=== PATIENT | female | born 1970 | race Caucasian/White ===

== ENCOUNTER 2017-09-16 01:34 | Emergency (ER) | payer OTHER ==
[2017-09-16 03:45] LABS: ADD MAN DIFF? NO
[2017-09-16 03:48] LABS: BASO # 0.1 x10^3/uL (0.0-0.2); BASO % 1 % (0-3); EOS # 0.1 x10^3/uL (0.0-0.7); EOS % 1 % (0-3); HEMOGLOBIN 15.6 g/dL (12.0-15.5); LYMPH # 2.4 x10^3/uL (1.0-4.8); LYMPH % 39 % (24-48); MEAN CORPUSCULAR HEMOGLOBIN 31 pg (25-35); MEAN CORPUSCULAR HGB CONC 34 g/dL (31-37); MEAN CORPUSCULAR VOLUME 92 fL (79-100); MONO # 0.4 x10^3/uL (0.0-1.1); MONO % 7 % (0-9); NEUT # 3.3 x10^3uL (1.8-7.7); NEUT % 52 % (31-73); PLATELET COUNT 297 x10^3/uL (140-400); RED BLOOD COUNT 4.99 x10^6/uL (3.50-5.40); WHITE BLOOD COUNT 6.3 x10^3/uL (4.0-11.0)
[2017-09-16 04:05] LABS: ANION GAP 11 (6-14); BLOOD UREA NITROGEN 22 mg/dL (7-20); BUN/CREATININE RATIO 28 (6-20); CALCIUM 8.9 mg/dL (8.5-10.1); CARBON DIOXIDE 28 mmol/L (21-32); CHLORIDE 103 mmol/L (98-107); CREATININE 0.8 mg/dL (0.6-1.0); GFR 76.9; GLUCOSE 110 mg/dL (70-99); POTASSIUM 4.1 mmol/L (3.5-5.1); SODIUM 142 mmol/L (136-145)
[2017-09-16 04:09] LABS: ALBUMIN 3.9 g/dL (3.4-5.0); ALK PHOS 114 U/L (46-116); ALT (SGPT) 25 U/L (14-59); AST (SGOT) 19 U/L (15-37); TOTAL BILIRUBIN 0.2 mg/dL (0.2-1.0); TOTAL PROTEIN 7.8 g/dL (6.4-8.2)
[2017-09-16 04:23] LABS: THYROID STIM HORMONE (TSH) 9.725 uIU/mL (0.358-3.74)
== END 2017-09-16 05:20 | disposition home or self-care (01) ==
LOC: ER 01:34
DX: F31.9 Bipolar disorder, unspecified (principal); Z88.2 Allergy status to sulfonamides
CPT/HCPCS: 36415; 80053; 84443; 84702; 85025; 99284

== ENCOUNTER 2017-11-24 10:58 | Inpatient (IN) | payer OTHER ==
[~2017-11-24] VITALS: Ht 170.2 cm; Wt 71.7 kg
[2017-11-24] VITALS (8 sets, daily range): BP systolic 102–157; BP diastolic 64–91
[~2017-11-24 10:58] MED LIST: DESV100T PO; GABA-586 PO; LEVO112T2 PO; PRAZ1CAP2 PO; VALA10005 PO
[2017-11-24] MEDS ORDERED: IV NORMAL SALINE 1000ML BAG 1,000 ML IV SCH (11:13)
[2017-11-24] MEDS ORDERED: ZIPRASIDONE IM 20 MG VIAL. IM ONE ×3 (11:13→13:45)
--- NOTE | 2017-11-24 11:26 | PHYS DOC ---
Past Medical History Past Medical History: Other Additional Past Medical Histor: borderline split personality disorder, bipolar II Past Surgical History: Tubal ligation, Other Additional Past Surgical Histo: tubes ligation reversed Alcohol Use: Occasionally Drug Use: Methamphetamine Adult General HPI HPI Patient is a 47-year-old female who presents to the emergency department after being found acting erratically, and was very combative with EMS. EMS required to administered 50 mg of ketamine intramuscularly and restrain the patient in order to facilitate a safe transport. The patient is screaming and combative upon arrival in the emergency department, and is not cooperative and not able to provide any meaningful history. Her symptoms do appear consistent with amphetamine intoxication, something that has been reported she has a history of. She is unable to provide any meaningful history at this time. Review of Systems Review of Systems Unable to obtain review of systems, secondary to suspected intoxication. Current Medications Current Medications Current Medications Medications (Trade) Dose Ordered Sig/Mauricio Start Time Stop Time Status Last Admin Dose Admin Lorazepam (Ativan) 2 mg 1X ONCE 11/24/17 13:45 11/24/17 13:46 DC 11/24/17 15:40 2 MG Sodium Chloride 1,000 ml @ 1,000 mls/hr Q1H 11/24/17 11:13 11/24/17 12:12 DC 11/24/17 11:24 1,000 MLS/HR Ziprasidone (Geodon Im) 10 mg 1X ONCE 11/24/17 13:45 11/24/17 13:46 DC 11/24/17 17:17 10 MG Allergies Allergies Allergies Coded Allergies Type Severity Reaction Last Updated Verified Sulfa (Sulfonamide Antibiotics) Allergy Unknown 09/16/17 Yes Physical Exam Physical Exam PHYSICAL EXAM: CONSTITUTIONAL: Well developed, well nourished HEAD: normocephalic, atraumatic EENT: PERRL, EOMI. pupils are 7 mm bilaterally. Conjunctivae normal color, sclerae non-icteric; moist mucous membranes. NECK: Supple, non-tender; no meningismus. LUNGS: Lungs CTA, breathing even and unlabored. Normal air movement. HEART: Regular rate and rhythm, no murmur CHEST: No deformity; non-tender ABDOMEN: The abdomen is soft, and non-tender, no masses or bruits. EXTREM: Normal ROM; no deformity, no calf tenderness. Normal pulses palpable in all extremities. There is no pedal edema. SKIN: No rash; patient's skin is diaphoretic. NEURO: Patient is awake, moves all extremities with normal strength. Her mental status is altered. BACK: No CVA TTP. Current Patient Data Vital Signs Vital Signs Date Time Temp Pulse Resp B/P (MAP) Pulse Ox O2 Delivery O2 Flow Rate FiO2 11/24/17 15:45 76 16 110/74 (86) 98 Room Air 11/24/17 11:00 97.6 97.6 Lab Values Laboratory Tests Test 11/24/17 11:14 11/24/17 11:40 11/24/17 11:45 11/24/17 11:46 White Blood Count 7.2 x10^3/uL (4.0-11.0) Red Blood Count 4.28 x10^6/uL (3.50-5.40) Hemoglobin 13.2 g/dL (12.0-15.5) Hematocrit 39.1 % (36.0-47.0) Mean Corpuscular Volume 92 fL (79-100) Mean Corpuscular Hemoglobin 31 pg (25-35) Mean Corpuscular Hemoglobin Concent 34 g/dL (31-37) Red Cell Distribution Width 13.6 % (11.5-14.5) Platelet Count 327 x10^3/uL (140-400) Neutrophils (%) (Auto) 62 % (31-73) Lymphocytes (%) (Auto) 30 % (24-48) Monocytes (%) (Auto) 7 % (0-9) Eosinophils (%) (Auto) 1 % (0-3) Basophils (%) (Auto) 1 % (0-3) Neutrophils # (Auto) 4.5 x10^3uL (1.8-7.7) Lymphocytes # (Auto) 2.2 x10^3/uL (1.0-4.8) Monocytes # (Auto) 0.5 x10^3/uL (0.0-1.1) Eosinophils # (Auto) 0.0 x10^3/uL (0.0-0.7) Basophils # (Auto) 0.0 x10^3/uL (0.0-0.2) Salicylates Level < 2.8 mg/dL (2.8-20.0) L Salicylate Last Dose Date Unknown Salicylate Last Dose Time Unknown Acetaminophen Level < 2 mcg/ml (10-30) L Acetaminophen Last Dose Date Unknown Acetaminophen Last Dose Time Unknown Ethyl Alcohol Level < 10 mg/dL (0-10) Sodium Level 139 mmol/L (136-145) Potassium Level 3.6 mmol/L (3.5-5.1) Chloride Level 105 mmol/L (98-107) Carbon Dioxide Level 24 mmol/L (21-32) Anion Gap 10 (6-14) Blood Urea Nitrogen 27 mg/dL (7-20) H Creatinine 0.9 mg/dL (0.6-1.0) Estimated GFR (Cockcroft-Gault) 67.1 Glucose Level 120 mg/dL (70-99) H Calcium Level 8.4 mg/dL (8.5-10.1) L Magnesium Level 1.8 mg/dL (1.8-2.4) Total Bilirubin 0.3 mg/dL (0.2-1.0) Direct Bilirubin 0.1 mg/dL (0.0-0.2) Aspartate Amino Transferase (AST) 20 U/L (15-37) Alanine Aminotransferase (ALT) 21 U/L (14-59) Alkaline Phosphatase 85 U/L (46-116) Total Protein 6.9 g/dL (6.4-8.2) Albumin 3.5 g/dL (3.4-5.0) Urine Collection Type U cath Urine Color Yellow Urine Clarity Clear Urine pH 5.5 Urine Specific [place] 1.025 Urine Protein Negative mg/dL (NEG-TRACE) Urine Glucose (UA) Negative mg/dL (NEG) Urine Ketones (Stick) Negative mg/dL (NEG) Urine Blood Negative (NEG) Urine Nitrite Negative (NEG) Urine Bilirubin Negative (NEG) Urine Urobilinogen Dipstick 1.0 mg/dL (0.2 mg/dL) Urine Leukocyte Esterase Negative (NEG) Urine RBC 1-2 /HPF (0-2) Urine WBC 1-4 /HPF (0-4) Urine Squamous Epithelial Cells Few /LPF Urine Bacteria Few /HPF (0-FEW) Urine Mucus Marked /LPF Urine Opiates Screen Neg (NEG) Urine Methadone Screen Neg (NEG) Urine Barbiturates Neg (NEG) Urine Phencyclidine Screen Neg (NEG) Urine Amphetamine/Methamphetamine Pos (NEG) Urine Benzodiazepines Screen Neg (NEG) Urine Cocaine Screen Neg (NEG) Urine Cannabinoids Screen Neg (NEG) Urine Ethyl Alcohol Neg (NEG) POC Urine HCG, Qualitative Hcg negative (Negative) Laboratory Tests 11/24/17 11:14 Laboratory Tests 11/24/17 11:40 EKG EKG [Sinus tachycardia at a rate of 123 bpm, normal axis, normal intervals, there are no acute ischemic ST/T changes.] Radiology/Procedures Radiology/Procedures [] Course & Med Decision Making Course & Med Decision Making Pertinent Lab studies reviewed. (See chart for details) [1:40 PM: The patient awakened, and is extremely agitated and combative again, as she was on presentation. She will require further medication treatment for her psychosis and agitation.] 3:50 PM: The patient condition remains hemodynamically stable although she is still exhibiting significant agitation and combativeness when awakened. I discussed the case with the hospitalist, who will admit the patient for further evaluation. Dragon Disclaimer Dragon Disclaimer This electronic medical record was generated, in whole or in part, using a voice recognition dictation system. Departure Departure Impression: Primary Impression: Drug-induced psychotic disorder Disposition: ADMITTED INPATIENT Admitting Physician: Cornelius Sherman Condition: GUARDED Referrals: UNKNOWN PCP NAME (PCP) AKASH COLON MD Nov 24, 2017 11:26
[2017-11-24 11:30] LABS: BASO % 1 % (0-3); EOS % 1 % (0-3); HEMATOCRIT 39.1 % (36.0-47.0); HEMOGLOBIN 13.2 g/dL (12.0-15.5); LYMPH # 2.2 x10^3/uL (1.0-4.8); LYMPH % 30 % (24-48); MEAN CORPUSCULAR HEMOGLOBIN 31 pg (25-35); MEAN CORPUSCULAR HGB CONC 34 g/dL (31-37); MEAN CORPUSCULAR VOLUME 92 fL (79-100); MONO # 0.5 x10^3/uL (0.0-1.1); MONO % 7 % (0-9); NEUT # 4.5 x10^3uL (1.8-7.7); NEUT % 62 % (31-73); PLATELET COUNT 327 x10^3/uL (140-400); RED BLOOD COUNT 4.28 x10^6/uL (3.50-5.40); RED CELL DISTRIBUTION WIDTH 13.6 % (11.5-14.5); WHITE BLOOD COUNT 7.2 x10^3/uL (4.0-11.0)
[2017-11-24 11:43] LABS: ACETAMIN < 2 mcg/ml (10-30); ETHANOL < 10 mg/dL (0-10); SALIC < 2.8 mg/dL (2.8-20.0)
[2017-11-24 11:56] LABS: BILIRUBIN,URINE NEGATIVE (NEG); CLARITY,URINE CLEAR; COLOR,URINE YELLOW; NITRITE,URINE NEGATIVE (NEG); PH,URINE 5.5; PROTEIN,URINE NEGATIVE (NEG-TRACE)
--- NOTE | 2017-11-24 12:00 | EKG ---
[facility] [address] [place] [address] Test Date: 2017-11-24 Test Time: 11:30:15 Pat Name: MAYELIN HSIEH Department: Room: Gender: F Mobile Architect: : 1970 Requested By: AKASH COLON Order Number: [id number] Reading MD: Ricardo Adler MD Measurements Intervals [place] Rate: 123 P: 56 MS: 148 QRS: 54 QRSD: 84 T: 69 QT: 298 QTc: 432 Interpretive Statements SINUS TACHYCARDIA NON-SPECIFIC ST/T CHANGES Electronically Signed On 11-26-2017 15:19:39 CDT by Ricardo Adler MD
[2017-11-24 12:04] LABS: ALBUMIN 3.5 g/dL (3.4-5.0); CALCIUM 8.4 mg/dL (8.5-10.1); CREATININE 0.9 mg/dL (0.6-1.0); DIRECT BILIRUBIN 0.1 mg/dL (0.0-0.2); GFR 67.1; MAGNESIUM 1.8 mg/dL (1.8-2.4); POTASSIUM 3.6 mmol/L (3.5-5.1); TOTAL BILIRUBIN 0.3 mg/dL (0.2-1.0); TOTAL PROTEIN 6.9 g/dL (6.4-8.2)
[2017-11-24 12:07] LABS: BARBITURATES NEG (NEG); BENZODIAZEPINES NEG (NEG); CANNABINOIDS NEG (NEG); COCAINE NEG (NEG); METHADONE NEG (NEG); OPIATES NEG (NEG); PHENCYCLIDINE NEG (NEG)
[2017-11-24 12:08] LABS: AMPHETAMINE/METHAMPHETAMINE POS (NEG); BACTERIA,URINE FEW /HPF (0-FEW); SQUAMOUS EPITHELIAL CELL,UR FEW /LPF
--- NOTE | 2017-11-24 16:11 | PDOC1 ---
History and Physical Date of Admission Date of Admission DATE: 11/24/17 TIME: 16:09 Identification/Chief Complaint Chief Complaint CC 47-year-old female who presents to the emergency department after being found acting erratically, and was very combative SEEN IN ER , Observed, no improvement Family History Family History: Alcohol Abuse Family History: Parent Social History Smoke: <1 pack per day ALCOHOL: heavy Drugs: Crystal meth Current Medications Current Medications Current Medications Ziprasidone (Geodon Im) 20 mg STK-MED ONCE IM ; Start 11/24/17 at 11:13; Stop at 11:14; Status DC Lorazepam (Ativan) 2 mg STK-MED ONCE .ROUTE ; Start 11/24/17 at 11:13; Stop at 11:15; Status DC Ziprasidone (Geodon Im) 10 mg 1X ONCE IM Last administered on 11/24/17at 11:19 ; Start 11/24/17 at 11:15; Stop 11/24/17 at 11:17; Status DC Lorazepam (Ativan) 2 mg 1X ONCE IV Last administered on 11/24/17at 11:19; Start 11/24/17 at 11:15; Stop 11/24/17 at 11:17; Status DC Sodium Chloride 1,000 ml @ 1,000 mls/hr Q1H IV Last administered on 11/24/17at 11:24; Start 11/24/17 at 11:13; Stop 11/24/17 at 12:12; Status DC Ziprasidone (Geodon Im) 10 mg 1X ONCE IM ; Start 11/24/17 at 13:45; Stop at 13:46; Status DC Lorazepam (Ativan) 2 mg 1X ONCE IV Last administered on 11/24/17at 15:40; Start 11/24/17 at 13:45; Stop 11/24/17 at 13:46; Status DC Dextrose/Lactated Ringer's 1,000 ml @ 125 mls/hr 1X ONCE IV ; Start 11/24/17 at 15:45; Stop 11/24/17 at 23:44; Status UNV Active Scripts Active Valtrex (Valacyclovir Hcl) 1,000 Mg Tablet 1 Tab PO DAILY Gabapentin 300 Mg Capsule 300 Mg PO TID 10 Days Prazosin Hcl 1 Mg Capsule 1 Cap PO QHS Synthroid (Levothyroxine Sodium) 112 Mcg Tablet 1 Tab PO DAILY Pristiq Er (Desvenlafaxine Succinate) 100 Mg Tab.er.24h 1 Tab PO DAILY Allergies Allergies: Coded Allergies: Sulfa (Sulfonamide Antibiotics) (Verified Allergy, Unknown, 09/16/17) Physical Exam Physical Exam HEAD: normocephalic, atraumatic EENT: PERRL, EOMI. pupils are 7 mm bilaterally. Conjunctivae normal color, sclerae non-icteric; moist mucous membranes. NECK: Supple, non-tender; no meningismus. LUNGS: Lungs CTA, breathing even and unlabored. Normal air movement. HEART: Regular rate and rhythm, no murmur CHEST: No deformity; non-tender ABDOMEN: The abdomen is soft, and non-tender, no masses or bruits. EXTREM: Normal ROM; no deformity, no calf tenderness. Normal pulses palpable in all extremities. There is no pedal edema. SKIN: No rash; patient's skin is diaphoretic. NEURO: Patient is awake, moves all extremities with normal strength. Her mental status is altered. BACK: No CVA TTP. General: moderate distress HEENT: EOMI Lungs: Clear to auscultation Breasts: Not examined Abdomen: Normal bowel sounds, Soft PELVIC: Examination not indicated Neuro: Cranial nerves 3-12 NL Vitals Vitals Vital Signs Date Time Temp Pulse Resp B/P (MAP) Pulse Ox O2 Delivery O2 Flow Rate FiO2 11/24/17 12:00 110 18 118/60 (79) 96 Room Air 11/24/17 11:00 97.6 97.6 Labs Labs Laboratory Tests Test 11/24/17 11:14 11/24/17 11:40 11/24/17 11:45 11/24/17 11:46 White Blood Count 7.2 x10^3/uL (4.0-11.0) Red Blood Count 4.28 x10^6/uL (3.50-5.40) Hemoglobin 13.2 g/dL (12.0-15.5) Hematocrit 39.1 % (36.0-47.0) Mean Corpuscular Volume 92 fL (79-100) Mean Corpuscular Hemoglobin 31 pg (25-35) Mean Corpuscular Hemoglobin Concent 34 g/dL (31-37) Red Cell Distribution Width 13.6 % (11.5-14.5) Platelet Count 327 x10^3/uL (140-400) Neutrophils (%) (Auto) 62 % (31-73) Lymphocytes (%) (Auto) 30 % (24-48) Monocytes (%) (Auto) 7 % (0-9) Eosinophils (%) (Auto) 1 % (0-3) Basophils (%) (Auto) 1 % (0-3) Neutrophils # (Auto) 4.5 x10^3uL (1.8-7.7) Lymphocytes # (Auto) 2.2 x10^3/uL (1.0-4.8) Monocytes # (Auto) 0.5 x10^3/uL (0.0-1.1) Eosinophils # (Auto) 0.0 x10^3/uL (0.0-0.7) Basophils # (Auto) 0.0 x10^3/uL (0.0-0.2) Salicylates Level < 2.8 mg/dL (2.8-20.0) Salicylate Last Dose Date Unknown Salicylate Last Dose Time Unknown Acetaminophen Level < 2 mcg/ml (10-30) Acetaminophen Last Dose Date Unknown Acetaminophen Last Dose Time Unknown Ethyl Alcohol Level < 10 mg/dL (0-10) Sodium Level 139 mmol/L (136-145) Potassium Level 3.6 mmol/L (3.5-5.1) Chloride Level 105 mmol/L (98-107) Carbon Dioxide Level 24 mmol/L (21-32) Anion Gap 10 (6-14) Blood Urea Nitrogen 27 mg/dL (7-20) Creatinine 0.9 mg/dL (0.6-1.0) Estimated GFR (Cockcroft-Gault) 67.1 Glucose Level 120 mg/dL (70-99) Calcium Level 8.4 mg/dL (8.5-10.1) Magnesium Level 1.8 mg/dL (1.8-2.4) Total Bilirubin 0.3 mg/dL (0.2-1.0) Direct Bilirubin 0.1 mg/dL (0.0-0.2) Aspartate Amino Transf (AST/SGOT) 20 U/L (15-37) Alanine Aminotransferase (ALT/SGPT) 21 U/L (14-59) Alkaline Phosphatase 85 U/L (46-116) Total Protein 6.9 g/dL (6.4-8.2) Albumin 3.5 g/dL (3.4-5.0) Urine Collection Type U cath Urine Color Yellow Urine Clarity Clear Urine pH 5.5 Urine Specific [place] 1.025 Urine Protein Negative mg/dL (NEG-TRACE) Urine Glucose (UA) Negative mg/dL (NEG) Urine Ketones (Stick) Negative mg/dL (NEG) Urine Blood Negative (NEG) Urine Nitrite Negative (NEG) Urine Bilirubin Negative (NEG) Urine Urobilinogen Dipstick 1.0 mg/dL (0.2 mg/dL) Urine Leukocyte Esterase Negative (NEG) Urine RBC 1-2 /HPF (0-2) Urine WBC 1-4 /HPF (0-4) Urine Squamous Epithelial Cells Few /LPF Urine Bacteria Few /HPF (0-FEW) Urine Mucus Marked /LPF Urine Opiates Screen Neg (NEG) Urine Methadone Screen Neg (NEG) Urine Barbiturates Neg (NEG) Urine Phencyclidine Screen Neg (NEG) Urine Amphetamine/Methamphetamine Pos (NEG) Urine Benzodiazepines Screen Neg (NEG) Urine Cocaine Screen Neg (NEG) Urine Cannabinoids Screen Neg (NEG) Urine Ethyl Alcohol Neg (NEG) Bedside Urine HCG, Qualitative Hcg negative (Negative) Laboratory Tests Test 11/24/17 11:14 11/24/17 11:40 11/24/17 11:45 11/24/17 11:46 White Blood Count 7.2 x10^3/uL (4.0-11.0) Red Blood Count 4.28 x10^6/uL (3.50-5.40) Hemoglobin 13.2 g/dL (12.0-15.5) Hematocrit 39.1 % (36.0-47.0) Mean Corpuscular Volume 92 fL (79-100) Mean Corpuscular Hemoglobin 31 pg (25-35) Mean Corpuscular Hemoglobin Concent 34 g/dL (31-37) Red Cell Distribution Width 13.6 % (11.5-14.5) Platelet Count 327 x10^3/uL (140-400) Neutrophils (%) (Auto) 62 % (31-73) Lymphocytes (%) (Auto) 30 % (24-48) Monocytes (%) (Auto) 7 % (0-9) Eosinophils (%) (Auto) 1 % (0-3) Basophils (%) (Auto) 1 % (0-3) Neutrophils # (Auto) 4.5 x10^3uL (1.8-7.7) Lymphocytes # (Auto) 2.2 x10^3/uL (1.0-4.8) Monocytes # (Auto) 0.5 x10^3/uL (0.0-1.1) Eosinophils # (Auto) 0.0 x10^3/uL (0.0-0.7) Basophils # (Auto) 0.0 x10^3/uL (0.0-0.2) Salicylates Level < 2.8 mg/dL (2.8-20.0) Salicylate Last Dose Date Unknown Salicylate Last Dose Time Unknown Acetaminophen Level < 2 mcg/ml (10-30) Acetaminophen Last Dose Date Unknown Acetaminophen Last Dose Time Unknown Ethyl Alcohol Level < 10 mg/dL (0-10) Sodium Level 139 mmol/L (136-145) Potassium Level 3.6 mmol/L (3.5-5.1) Chloride Level 105 mmol/L (98-107) Carbon Dioxide Level 24 mmol/L (21-32) Anion Gap 10 (6-14) Blood Urea Nitrogen 27 mg/dL (7-20) Creatinine 0.9 mg/dL (0.6-1.0) Estimated GFR (Cockcroft-Gault) 67.1 Glucose Level 120 mg/dL (70-99) Calcium Level 8.4 mg/dL (8.5-10.1) Magnesium Level 1.8 mg/dL (1.8-2.4) Total Bilirubin 0.3 mg/dL (0.2-1.0) Direct Bilirubin 0.1 mg/dL (0.0-0.2) Aspartate Amino Transf (AST/SGOT) 20 U/L (15-37) Alanine Aminotransferase (ALT/SGPT) 21 U/L (14-59) Alkaline Phosphatase 85 U/L (46-116) Total Protein 6.9 g/dL (6.4-8.2) Albumin 3.5 g/dL (3.4-5.0) Urine Collection Type U cath Urine Color Yellow Urine Clarity Clear Urine pH 5.5 Urine Specific [place] 1.025 Urine Protein Negative mg/dL (NEG-TRACE) Urine Glucose (UA) Negative mg/dL (NEG) Urine Ketones (Stick) Negative mg/dL (NEG) Urine Blood Negative (NEG) Urine Nitrite Negative (NEG) Urine Bilirubin Negative (NEG) Urine Urobilinogen Dipstick 1.0 mg/dL (0.2 mg/dL) Urine Leukocyte Esterase Negative (NEG) Urine RBC 1-2 /HPF (0-2) Urine WBC 1-4 /HPF (0-4) Urine Squamous Epithelial Cells Few /LPF Urine Bacteria Few /HPF (0-FEW) Urine Mucus Marked /LPF Urine Opiates Screen Neg (NEG) Urine Methadone Screen Neg (NEG) Urine Barbiturates Neg (NEG) Urine Phencyclidine Screen Neg (NEG) Urine Amphetamine/Methamphetamine Pos (NEG) Urine Benzodiazepines Screen Neg (NEG) Urine Cocaine Screen Neg (NEG) Urine Cannabinoids Screen Neg (NEG) Urine Ethyl Alcohol Neg (NEG) Bedside Urine HCG, Qualitative Hcg negative (Negative) VTE Prophylaxis Ordered VTE Prophylaxis Devices: Yes VTE Pharmacological Prophylaxi: Yes Assessment/Plan Assessment/Plan extremely agitated and combative with psychosis meth abuse hypothyroid state on replacement, plan She will require admission for psychosis and agitation. ICU BED Geodon 10mg im q 12 hrs prn PAT team consult case mgt consult lovenox dvt prophylaxis banana bag at 120cc/hr ct head LUPE BRAGG MD Nov 24, 2017 16:11
[2017-11-24] MEDS ORDERED: IV DEXTROSE 5%-LACT RINGERS 1,000 ML IV ONE (16:30)
[2017-11-24] MEDS ORDERED: ZIPRASIDONE IM 20 MG VIAL. IM PRN (16:30)
[2017-11-24] MEDS ORDERED: MULTIVIT INFUSN,ADULT 4,VIT K 10 ML, THIAMINE 100 MG, FOLIC ACID 1 MG in IV NORMAL SALI... IV ONE (17:00)
[2017-11-24] MEDS ORDERED: ENOXAPARIN 40 MG/0.4 ML SYRINGE. SQ ONE (17:00)
[2017-11-25] VITALS (14 sets, daily range): BP systolic 118–157; BP diastolic 69–100
[2017-11-25 11:02] LABS: CALCIUM 8.9 mg/dL (8.5-10.1); CREATININE 0.8 mg/dL (0.6-1.0); GFR 76.9; POTASSIUM 3.8 mmol/L (3.5-5.1)
[2017-11-25 11:06] LABS: BASO % 1 % (0-3); EOS % 1 % (0-3); HEMATOCRIT 39.2 % (36.0-47.0); HEMOGLOBIN 13.2 g/dL (12.0-15.5); LYMPH # 2.1 x10^3/uL (1.0-4.8); LYMPH % 35 % (24-48); MEAN CORPUSCULAR HEMOGLOBIN 31 pg (25-35); MEAN CORPUSCULAR HGB CONC 34 g/dL (31-37); MEAN CORPUSCULAR VOLUME 93 fL (79-100); MONO # 0.4 x10^3/uL (0.0-1.1); MONO % 7 % (0-9); NEUT # 3.4 x10^3uL (1.8-7.7); NEUT % 57 % (31-73); PLATELET COUNT 265 x10^3/uL (140-400); RED BLOOD COUNT 4.23 x10^6/uL (3.50-5.40); RED CELL DISTRIBUTION WIDTH 13.6 % (11.5-14.5)
--- NOTE | 2017-11-25 14:49 | PDOC ---
PROGRESS NOTES Chief Complaint Chief Complaint Drug induced psychosis Cellulitis L forearm Substance abuse, meth Thyroid disorder Ehmarce Danlos C4/C5 fusion shingles History of Present Illness History of Present Illness Pt seen and examined in ICU Pt was slightly agitated during visit claimed that the drugs she was on were given to her unknowingly her answers to questions kept changing DW RN who is 1 to 1 at her bedside Cellulitis and small bullae present on her left forearm Vitals Vitals Vital Signs Date Time Temp Pulse Resp B/P (MAP) Pulse Ox O2 Delivery O2 Flow Rate FiO2 11/25/17 12:00 98 21 138/77 (97) 98 Room Air 11/25/17 08:00 98.0 98.0 Physical Exam General: Alert, Oriented X3, moderate distress Heart: Regular rate, Normal S1 Lungs: Clear Abdomen: Normal bowel sounds, Soft Extremities: No clubbing, No cyanosis Skin: Other (small bullous lesions on left forearm. Red, puffy, taut, warm skin - cellulitis) Labs LABS Laboratory Tests Test 11/25/17 10:35 White Blood Count 6.0 x10^3/uL (4.0-11.0) Red Blood Count 4.23 x10^6/uL (3.50-5.40) Hemoglobin 13.2 g/dL (12.0-15.5) Hematocrit 39.2 % (36.0-47.0) Mean Corpuscular Volume 93 fL (79-100) Mean Corpuscular Hemoglobin 31 pg (25-35) Mean Corpuscular Hemoglobin Concent 34 g/dL (31-37) Red Cell Distribution Width 13.6 % (11.5-14.5) Platelet Count 265 x10^3/uL (140-400) Neutrophils (%) (Auto) 57 % (31-73) Lymphocytes (%) (Auto) 35 % (24-48) Monocytes (%) (Auto) 7 % (0-9) Eosinophils (%) (Auto) 1 % (0-3) Basophils (%) (Auto) 1 % (0-3) Neutrophils # (Auto) 3.4 x10^3uL (1.8-7.7) Lymphocytes # (Auto) 2.1 x10^3/uL (1.0-4.8) Monocytes # (Auto) 0.4 x10^3/uL (0.0-1.1) Eosinophils # (Auto) 0.0 x10^3/uL (0.0-0.7) Basophils # (Auto) 0.0 x10^3/uL (0.0-0.2) Sodium Level 139 mmol/L (136-145) Potassium Level 3.8 mmol/L (3.5-5.1) Chloride Level 104 mmol/L (98-107) Carbon Dioxide Level 26 mmol/L (21-32) Anion Gap 9 (6-14) Blood Urea Nitrogen 16 mg/dL (7-20) Creatinine 0.8 mg/dL (0.6-1.0) Estimated GFR (Cockcroft-Gault) 76.9 Glucose Level 95 mg/dL (70-99) Calcium Level 8.9 mg/dL (8.5-10.1) Review of Systems Review of Systems Complains of pain in left forearm denies N/V/D Assessment and Plan Assessmemt and Plan Drug induced psychosis Cellulitis L forearm Substance abuse, meth Thyroid disorder Ehler Danlos C4/C5 fusion shingles Plan: PO Abx for cellulitis home meds PAT consult- recommended outpatient [facility] Labs continue supervision Comment Review of Relevant I have reviewed the following items erich (where applicable) has been applied. Labs Laboratory Tests Test 11/24/17 11:14 11/24/17 11:40 11/24/17 11:45 11/24/17 11:46 White Blood Count 7.2 x10^3/uL (4.0-11.0) Red Blood Count 4.28 x10^6/uL (3.50-5.40) Hemoglobin 13.2 g/dL (12.0-15.5) Hematocrit 39.1 % (36.0-47.0) Mean Corpuscular Volume 92 fL (79-100) Mean Corpuscular Hemoglobin 31 pg (25-35) Mean Corpuscular Hemoglobin Concent 34 g/dL (31-37) Red Cell Distribution Width 13.6 % (11.5-14.5) Platelet Count 327 x10^3/uL (140-400) Neutrophils (%) (Auto) 62 % (31-73) Lymphocytes (%) (Auto) 30 % (24-48) Monocytes (%) (Auto) 7 % (0-9) Eosinophils (%) (Auto) 1 % (0-3) Basophils (%) (Auto) 1 % (0-3) Neutrophils # (Auto) 4.5 x10^3uL (1.8-7.7) Lymphocytes # (Auto) 2.2 x10^3/uL (1.0-4.8) Monocytes # (Auto) 0.5 x10^3/uL (0.0-1.1) Eosinophils # (Auto) 0.0 x10^3/uL (0.0-0.7) Basophils # (Auto) 0.0 x10^3/uL (0.0-0.2) Salicylates Level < 2.8 mg/dL (2.8-20.0) Salicylate Last Dose Date Unknown Salicylate Last Dose Time Unknown Acetaminophen Level < 2 mcg/ml (10-30) Acetaminophen Last Dose Date Unknown Acetaminophen Last Dose Time Unknown Ethyl Alcohol Level < 10 mg/dL (0-10) Sodium Level 139 mmol/L (136-145) Potassium Level 3.6 mmol/L (3.5-5.1) Chloride Level 105 mmol/L (98-107) Carbon Dioxide Level 24 mmol/L (21-32) Anion Gap 10 (6-14) Blood Urea Nitrogen 27 mg/dL (7-20) Creatinine 0.9 mg/dL (0.6-1.0) Estimated GFR (Cockcroft-Gault) 67.1 Glucose Level 120 mg/dL (70-99) Calcium Level 8.4 mg/dL (8.5-10.1) Magnesium Level 1.8 mg/dL (1.8-2.4) Total Bilirubin 0.3 mg/dL (0.2-1.0) Direct Bilirubin 0.1 mg/dL (0.0-0.2) Aspartate Amino Transf (AST/SGOT) 20 U/L (15-37) Alanine Aminotransferase (ALT/SGPT) 21 U/L (14-59) Alkaline Phosphatase 85 U/L (46-116) Total Protein 6.9 g/dL (6.4-8.2) Albumin 3.5 g/dL (3.4-5.0) Urine Collection Type U cath Urine Color Yellow Urine Clarity Clear Urine pH 5.5 Urine Specific [place] 1.025 Urine Protein Negative mg/dL (NEG-TRACE) Urine Glucose (UA) Negative mg/dL (NEG) Urine Ketones (Stick) Negative mg/dL (NEG) Urine Blood Negative (NEG) Urine Nitrite Negative (NEG) Urine Bilirubin Negative (NEG) Urine Urobilinogen Dipstick 1.0 mg/dL (0.2 mg/dL) Urine Leukocyte Esterase Negative (NEG) Urine RBC 1-2 /HPF (0-2) Urine WBC 1-4 /HPF (0-4) Urine Squamous Epithelial Cells Few /LPF Urine Bacteria Few /HPF (0-FEW) Urine Mucus Marked /LPF Urine Opiates Screen Neg (NEG) Urine Methadone Screen Neg (NEG) Urine Barbiturates Neg (NEG) Urine Phencyclidine Screen Neg (NEG) Urine Amphetamine/Methamphetamine Pos (NEG) Urine Benzodiazepines Screen Neg (NEG) Urine Cocaine Screen Neg (NEG) Urine Cannabinoids Screen Neg (NEG) Urine Ethyl Alcohol Neg (NEG) Bedside Urine HCG, Qualitative Hcg negative (Negative) Test 11/25/17 10:35 White Blood Count 6.0 x10^3/uL (4.0-11.0) Red Blood Count 4.23 x10^6/uL (3.50-5.40) Hemoglobin 13.2 g/dL (12.0-15.5) Hematocrit 39.2 % (36.0-47.0) Mean Corpuscular Volume 93 fL (79-100) Mean Corpuscular Hemoglobin 31 pg (25-35) Mean Corpuscular Hemoglobin Concent 34 g/dL (31-37) Red Cell Distribution Width 13.6 % (11.5-14.5) Platelet Count 265 x10^3/uL (140-400) Neutrophils (%) (Auto) 57 % (31-73) Lymphocytes (%) (Auto) 35 % (24-48) Monocytes (%) (Auto) 7 % (0-9) Eosinophils (%) (Auto) 1 % (0-3) Basophils (%) (Auto) 1 % (0-3) Neutrophils # (Auto) 3.4 x10^3uL (1.8-7.7) Lymphocytes # (Auto) 2.1 x10^3/uL (1.0-4.8) Monocytes # (Auto) 0.4 x10^3/uL (0.0-1.1) Eosinophils # (Auto) 0.0 x10^3/uL (0.0-0.7) Basophils # (Auto) 0.0 x10^3/uL (0.0-0.2) Sodium Level 139 mmol/L (136-145) Potassium Level 3.8 mmol/L (3.5-5.1) Chloride Level 104 mmol/L (98-107) Carbon Dioxide Level 26 mmol/L (21-32) Anion Gap 9 (6-14) Blood Urea Nitrogen 16 mg/dL (7-20) Creatinine 0.8 mg/dL (0.6-1.0) Estimated GFR (Cockcroft-Gault) 76.9 Glucose Level 95 mg/dL (70-99) Calcium Level 8.9 mg/dL (8.5-10.1) Laboratory Tests Test 11/25/17 10:35 White Blood Count 6.0 x10^3/uL (4.0-11.0) Red Blood Count 4.23 x10^6/uL (3.50-5.40) Hemoglobin 13.2 g/dL (12.0-15.5) Hematocrit 39.2 % (36.0-47.0) Mean Corpuscular Volume 93 fL (79-100) Mean Corpuscular Hemoglobin 31 pg (25-35) Mean Corpuscular Hemoglobin Concent 34 g/dL (31-37) Red Cell Distribution Width 13.6 % (11.5-14.5) Platelet Count 265 x10^3/uL (140-400) Neutrophils (%) (Auto) 57 % (31-73) Lymphocytes (%) (Auto) 35 % (24-48) Monocytes (%) (Auto) 7 % (0-9) Eosinophils (%) (Auto) 1 % (0-3) Basophils (%) (Auto) 1 % (0-3) Neutrophils # (Auto) 3.4 x10^3uL (1.8-7.7) Lymphocytes # (Auto) 2.1 x10^3/uL (1.0-4.8) Monocytes # (Auto) 0.4 x10^3/uL (0.0-1.1) Eosinophils # (Auto) 0.0 x10^3/uL (0.0-0.7) Basophils # (Auto) 0.0 x10^3/uL (0.0-0.2) Sodium Level 139 mmol/L (136-145) Potassium Level 3.8 mmol/L (3.5-5.1) Chloride Level 104 mmol/L (98-107) Carbon Dioxide Level 26 mmol/L (21-32) Anion Gap 9 (6-14) Blood Urea Nitrogen 16 mg/dL (7-20) Creatinine 0.8 mg/dL (0.6-1.0) Estimated GFR (Cockcroft-Gault) 76.9 Glucose Level 95 mg/dL (70-99) Calcium Level 8.9 mg/dL (8.5-10.1) Medications Current Medications Ziprasidone (Geodon Im) 20 mg STK-MED ONCE IM ; Start 11/24/17 at 11:13; Stop at 11:14; Status DC Lorazepam (Ativan) 2 mg STK-MED ONCE .ROUTE ; Start 11/24/17 at 11:13; Stop at 11:15; Status DC Ziprasidone (Geodon Im) 10 mg 1X ONCE IM Last administered on 11/24/17at 11:19 ; Start 11/24/17 at 11:15; Stop 11/24/17 at 11:17; Status DC Lorazepam (Ativan) 2 mg 1X ONCE IV Last administered on 11/24/17at 11:19; Start 11/24/17 at 11:15; Stop 11/24/17 at 11:17; Status DC Sodium Chloride 1,000 ml @ 1,000 mls/hr Q1H IV Last administered on 11/24/17at 11:24; Start 11/24/17 at 11:13; Stop 11/24/17 at 12:12; Status DC Ziprasidone (Geodon Im) 10 mg 1X ONCE IM Last administered on 11/24/17at 17:17 ; Start 11/24/17 at 13:45; Stop 11/24/17 at 13:46; Status DC Lorazepam (Ativan) 2 mg 1X ONCE IV Last administered on 11/24/17at 15:40; Start 11/24/17 at 13:45; Stop 11/24/17 at 13:46; Status DC Dextrose/Lactated Ringer's 1,000 ml @ 125 mls/hr 1X ONCE IV ; Start 11/24/17 at 16:30; Stop 11/25/17 at 00:29; Status DC Ziprasidone (Geodon Im) 10 mg PRN Q12HR PRN IM AGITATION, 2ND CHOICE; Start at 16:30 Levothyroxine Sodium (Synthroid) 112 mcg DAILY07 PO ; Start 11/25/17 at 07:00 Valacyclovir HCl (Valtrex) 1,000 mg DAILY PO ; Start 11/25/17 at 09:00 Multivitamins 10 ml/Thiamine HCl 100 mg/Folic Acid 1 mg/Sodium Chloride 1,011.2 ml @ 1,000.088 mls/hr 1X ONCE IV Last administered on 11/24/17at 17:18; Start 11/24/17 at 17:00; Stop 11/24/17 at 18:00; Status DC Enoxaparin Sodium (Lovenox 40mg Syringe) 40 mg 1X ONCE SQ Last administered on 11/24/17at 18:27; Start 11/24/17 at 17:00; Stop 11/24/17 at 17:01; Status DC Lorazepam (Ativan) 2 mg STK-MED ONCE .ROUTE ; Start 11/24/17 at 19:21; Stop at 19:22; Status DC Lorazepam (Ativan) 2 mg PRN Q3HRS PRN IV ANXIETY / AGITATION Last administered on 11/25/17at 05:49; Start 11/24/17 at 19:45 Active Scripts Active Valtrex (Valacyclovir Hcl) 1,000 Mg Tablet 1 Tab PO DAILY Gabapentin 300 Mg Capsule 300 Mg PO TID 10 Days Prazosin Hcl 1 Mg Capsule 1 Cap PO QHS Synthroid (Levothyroxine Sodium) 112 Mcg Tablet 1 Tab PO DAILY Pristiq Er (Desvenlafaxine Succinate) 100 Mg Tab.er.24h 1 Tab PO DAILY Vitals/I & O Vital Sign - Last 24 Hours 11/24/17 11/24/17 11/24/17 11/24/17 15:00 15:30 15:45 16:00 Pulse 104 76 76 78 Resp 17 18 16 17 B/P (MAP) 120/64 (82) 106/56 (73) 110/74 (86) 125/73 (90) Pulse Ox 97 98 98 96 O2 Delivery Room Air Room Air Room Air Room Air 11/24/17 11/24/17 11/24/17 11/24/17 16:15 16:45 17:30 18:00 Temp 98.5 98.5 98.5 98.5 Pulse 72 76 77 71 Resp 16 17 18 18 B/P (MAP) 125/80 (95) 107/67 (80) 112/66 (81) 102/64 (77) Pulse Ox 99 97 99 99 O2 Delivery Room Air Room Air Room Air Room Air 11/24/17 11/24/17 11/24/17 11/24/17 19:02 20:00 21:00 22:00 Temp 98.7 98.7 98.7 98.7 Pulse 69 69 67 71 Resp 12 18 18 15 B/P (MAP) 122/71 (88) 122/68 (86) 135/70 (91) 134/87 (103) Pulse Ox 100 99 99 98 O2 Delivery Room Air Room Air Room Air Room Air 11/24/17 11/24/17 11/25/17 11/25/17 23:00 23:59 01:00 02:00 Pulse 71 71 79 77 Resp 15 15 15 18 B/P (MAP) 157/91 (113) 140/82 (101) 140/83 (102) 157/100 (119) Pulse Ox 97 98 99 96 O2 Delivery Room Air Room Air Room Air Room Air 11/25/17 11/25/17 11/25/17 11/25/17 03:01 04:00 04:00 05:00 Temp 97.8 97.8 Pulse 74 82 82 Resp 14 20 22 B/P (MAP) 157/87 (110) 149/85 (106) 118/69 (85) Pulse Ox 99 98 99 O2 Delivery Room Air Room Air Room Air Room Air 11/25/17 11/25/17 11/25/17 11/25/17 06:19 07:00 08:00 08:00 Temp 98.0 98.0 Pulse 105 83 77 Resp 20 16 14 B/P (MAP) 129/95 (106) 132/78 (96) 127/82 (97) Pulse Ox 98 98 98 O2 Delivery Room Air Room Air Room Air Room Air 11/25/17 11/25/17 11/25/17 11/25/17 09:00 10:00 11:00 12:00 Pulse 74 76 79 Resp 17 20 21 B/P (MAP) 149/93 (111) 138/87 (104) 141/85 (103) Pulse Ox 98 98 98 O2 Delivery Room Air Room Air Room Air Room Air 11/25/17 12:00 Pulse 98 Resp 21 B/P (MAP) 138/77 (97) Pulse Ox 98 O2 Delivery Room Air Intake and Output 11/24/17 11/24/17 11/25/17 15:00 23:00 07:00 Intake Total 1000 ml 0 ml Output Total 0 ml 0 ml Balance 1000 ml 0 ml 0 ml DOMENIC MONTELONGO III DO Nov 25, 2017 14:49
[2017-11-25] MEDS: AMOXICILLIN/K CLAV 875/125MG TABLET. PO SCH ×2 (15:07→20:56)
[2017-11-25] MEDS: LEVOTHYROXINE 112 MCG TABLET PO SCH (15:07)
[2017-11-25] MEDS: valACYclovir 500 MG TABLET. PO SCH (15:07)
[2017-11-25] MEDS: LACTOBACILLUS RHAMNOSUS GG 1 CAPSULE. PO SCH (20:56)
[2017-11-25] MEDS ORDERED: clonazePAM 1 MG TABLET PO PRN (21:00)
[2017-11-25] MEDS ORDERED: HALOPERIDOL 5 MG TABLET. PO PRN (21:00)
[2017-11-25] MEDS ORDERED: NICOTINE POLACRILEX 2MG GUM PACKAGE of 12. BC PRN (23:45)
[2017-11-26 07:00] VITALS: BP 102/62
[2017-11-26] MEDS: valACYclovir 500 MG TABLET. PO SCH (09:39)
[2017-11-26] MEDS: AMOXICILLIN/K CLAV 875/125MG TABLET. PO SCH (09:39)
[2017-11-26] MEDS: LEVOTHYROXINE 112 MCG TABLET PO SCH (09:39)
[2017-11-26] MEDS: LACTOBACILLUS RHAMNOSUS GG 1 CAPSULE. PO SCH (09:39)
--- NOTE | 2017-11-26 10:06 | PDOC ---
PROGRESS NOTES Chief Complaint Chief Complaint Drug induced psychosis (methamphetamine) Cellulitis L forearm, better on PO augmentin Substance abuse, meth Thyroid disorder Ehler Danlos C4/C5 fusion shingles? History of Present Illness History of Present Illness Transferred out of ICU 11/26/79 Cellulitis of the left arm seems to be getting better as per staff-someone started Augmentin by mouth I dont see any shingles in the body Discussed with very close friend at bedside, also discussed with social work, patient is for outpatient psych eval as per pAT assessment, But patient is still unsteady gait, not eating, I feel that she's not ready to DC yet today Plan: Keep for now NOt ready to dc today, clinically Vitals Vitals Vital Signs Date Time Temp Pulse Resp B/P (MAP) Pulse Ox O2 Delivery O2 Flow Rate FiO2 11/26/17 07:00 97.4 68 18 102/62 (75) 100 Room Air 97.4 Physical Exam General: Alert, Oriented X3, moderate distress Heart: Regular rate, Normal S1 Lungs: Clear Abdomen: Normal bowel sounds, Soft Extremities: No clubbing, No cyanosis Skin: Other (small bullous lesions on left forearm. Red, puffy, taut, warm skin - cellulitis) Labs LABS Laboratory Tests Test 11/25/17 10:35 White Blood Count 6.0 x10^3/uL (4.0-11.0) Red Blood Count 4.23 x10^6/uL (3.50-5.40) Hemoglobin 13.2 g/dL (12.0-15.5) Hematocrit 39.2 % (36.0-47.0) Mean Corpuscular Volume 93 fL (79-100) Mean Corpuscular Hemoglobin 31 pg (25-35) Mean Corpuscular Hemoglobin Concent 34 g/dL (31-37) Red Cell Distribution Width 13.6 % (11.5-14.5) Platelet Count 265 x10^3/uL (140-400) Neutrophils (%) (Auto) 57 % (31-73) Lymphocytes (%) (Auto) 35 % (24-48) Monocytes (%) (Auto) 7 % (0-9) Eosinophils (%) (Auto) 1 % (0-3) Basophils (%) (Auto) 1 % (0-3) Neutrophils # (Auto) 3.4 x10^3uL (1.8-7.7) Lymphocytes # (Auto) 2.1 x10^3/uL (1.0-4.8) Monocytes # (Auto) 0.4 x10^3/uL (0.0-1.1) Eosinophils # (Auto) 0.0 x10^3/uL (0.0-0.7) Basophils # (Auto) 0.0 x10^3/uL (0.0-0.2) Sodium Level 139 mmol/L (136-145) Potassium Level 3.8 mmol/L (3.5-5.1) Chloride Level 104 mmol/L (98-107) Carbon Dioxide Level 26 mmol/L (21-32) Anion Gap 9 (6-14) Blood Urea Nitrogen 16 mg/dL (7-20) Creatinine 0.8 mg/dL (0.6-1.0) Estimated GFR (Cockcroft-Gault) 76.9 Glucose Level 95 mg/dL (70-99) Calcium Level 8.9 mg/dL (8.5-10.1) Review of Systems Review of Systems Woozy, limited ROS, claims pain in bilateral arms - they do appear mildly swollen Assessment and Plan Assessmemt and Plan Problems Medical Problems: (1) Drug-induced psychotic disorder Status: Acute Comment Review of Relevant I have reviewed the following items erich (where applicable) has been applied. Labs Laboratory Tests Test 11/24/17 11:14 11/24/17 11:40 11/24/17 11:45 11/24/17 11:46 White Blood Count 7.2 x10^3/uL (4.0-11.0) Red Blood Count 4.28 x10^6/uL (3.50-5.40) Hemoglobin 13.2 g/dL (12.0-15.5) Hematocrit 39.1 % (36.0-47.0) Mean Corpuscular Volume 92 fL (79-100) Mean Corpuscular Hemoglobin 31 pg (25-35) Mean Corpuscular Hemoglobin Concent 34 g/dL (31-37) Red Cell Distribution Width 13.6 % (11.5-14.5) Platelet Count 327 x10^3/uL (140-400) Neutrophils (%) (Auto) 62 % (31-73) Lymphocytes (%) (Auto) 30 % (24-48) Monocytes (%) (Auto) 7 % (0-9) Eosinophils (%) (Auto) 1 % (0-3) Basophils (%) (Auto) 1 % (0-3) Neutrophils # (Auto) 4.5 x10^3uL (1.8-7.7) Lymphocytes # (Auto) 2.2 x10^3/uL (1.0-4.8) Monocytes # (Auto) 0.5 x10^3/uL (0.0-1.1) Eosinophils # (Auto) 0.0 x10^3/uL (0.0-0.7) Basophils # (Auto) 0.0 x10^3/uL (0.0-0.2) Salicylates Level < 2.8 mg/dL (2.8-20.0) Salicylate Last Dose Date Unknown Salicylate Last Dose Time Unknown Acetaminophen Level < 2 mcg/ml (10-30) Acetaminophen Last Dose Date Unknown Acetaminophen Last Dose Time Unknown Ethyl Alcohol Level < 10 mg/dL (0-10) Sodium Level 139 mmol/L (136-145) Potassium Level 3.6 mmol/L (3.5-5.1) Chloride Level 105 mmol/L (98-107) Carbon Dioxide Level 24 mmol/L (21-32) Anion Gap 10 (6-14) Blood Urea Nitrogen 27 mg/dL (7-20) Creatinine 0.9 mg/dL (0.6-1.0) Estimated GFR (Cockcroft-Gault) 67.1 Glucose Level 120 mg/dL (70-99) Calcium Level 8.4 mg/dL (8.5-10.1) Magnesium Level 1.8 mg/dL (1.8-2.4) Total Bilirubin 0.3 mg/dL (0.2-1.0) Direct Bilirubin 0.1 mg/dL (0.0-0.2) Aspartate Amino Transf (AST/SGOT) 20 U/L (15-37) Alanine Aminotransferase (ALT/SGPT) 21 U/L (14-59) Alkaline Phosphatase 85 U/L (46-116) Total Protein 6.9 g/dL (6.4-8.2) Albumin 3.5 g/dL (3.4-5.0) Urine Collection Type U cath Urine Color Yellow Urine Clarity Clear Urine pH 5.5 Urine Specific [place] 1.025 Urine Protein Negative mg/dL (NEG-TRACE) Urine Glucose (UA) Negative mg/dL (NEG) Urine Ketones (Stick) Negative mg/dL (NEG) Urine Blood Negative (NEG) Urine Nitrite Negative (NEG) Urine Bilirubin Negative (NEG) Urine Urobilinogen Dipstick 1.0 mg/dL (0.2 mg/dL) Urine Leukocyte Esterase Negative (NEG) Urine RBC 1-2 /HPF (0-2) Urine WBC 1-4 /HPF (0-4) Urine Squamous Epithelial Cells Few /LPF Urine Bacteria Few /HPF (0-FEW) Urine Mucus Marked /LPF Urine Opiates Screen Neg (NEG) Urine Methadone Screen Neg (NEG) Urine Barbiturates Neg (NEG) Urine Phencyclidine Screen Neg (NEG) Urine Amphetamine/Methamphetamine Pos (NEG) Urine Benzodiazepines Screen Neg (NEG) Urine Cocaine Screen Neg (NEG) Urine Cannabinoids Screen Neg (NEG) Urine Ethyl Alcohol Neg (NEG) Bedside Urine HCG, Qualitative Hcg negative (Negative) Test 11/24/17 18:30 11/25/17 10:35 Nasal Screen MRSA (PCR) Negative (Negative) White Blood Count 6.0 x10^3/uL (4.0-11.0) Red Blood Count 4.23 x10^6/uL (3.50-5.40) Hemoglobin 13.2 g/dL (12.0-15.5) Hematocrit 39.2 % (36.0-47.0) Mean Corpuscular Volume 93 fL (79-100) Mean Corpuscular Hemoglobin 31 pg (25-35) Mean Corpuscular Hemoglobin Concent 34 g/dL (31-37) Red Cell Distribution Width 13.6 % (11.5-14.5) Platelet Count 265 x10^3/uL (140-400) Neutrophils (%) (Auto) 57 % (31-73) Lymphocytes (%) (Auto) 35 % (24-48) Monocytes (%) (Auto) 7 % (0-9) Eosinophils (%) (Auto) 1 % (0-3) Basophils (%) (Auto) 1 % (0-3) Neutrophils # (Auto) 3.4 x10^3uL (1.8-7.7) Lymphocytes # (Auto) 2.1 x10^3/uL (1.0-4.8) Monocytes # (Auto) 0.4 x10^3/uL (0.0-1.1) Eosinophils # (Auto) 0.0 x10^3/uL (0.0-0.7) Basophils # (Auto) 0.0 x10^3/uL (0.0-0.2) Sodium Level 139 mmol/L (136-145) Potassium Level 3.8 mmol/L (3.5-5.1) Chloride Level 104 mmol/L (98-107) Carbon Dioxide Level 26 mmol/L (21-32) Anion Gap 9 (6-14) Blood Urea Nitrogen 16 mg/dL (7-20) Creatinine 0.8 mg/dL (0.6-1.0) Estimated GFR (Cockcroft-Gault) 76.9 Glucose Level 95 mg/dL (70-99) Calcium Level 8.9 mg/dL (8.5-10.1) Laboratory Tests Test 11/25/17 10:35 White Blood Count 6.0 x10^3/uL (4.0-11.0) Red Blood Count 4.23 x10^6/uL (3.50-5.40) Hemoglobin 13.2 g/dL (12.0-15.5) Hematocrit 39.2 % (36.0-47.0) Mean Corpuscular Volume 93 fL (79-100) Mean Corpuscular Hemoglobin 31 pg (25-35) Mean Corpuscular Hemoglobin Concent 34 g/dL (31-37) Red Cell Distribution Width 13.6 % (11.5-14.5) Platelet Count 265 x10^3/uL (140-400) Neutrophils (%) (Auto) 57 % (31-73) Lymphocytes (%) (Auto) 35 % (24-48) Monocytes (%) (Auto) 7 % (0-9) Eosinophils (%) (Auto) 1 % (0-3) Basophils (%) (Auto) 1 % (0-3) Neutrophils # (Auto) 3.4 x10^3uL (1.8-7.7) Lymphocytes # (Auto) 2.1 x10^3/uL (1.0-4.8) Monocytes # (Auto) 0.4 x10^3/uL (0.0-1.1) Eosinophils # (Auto) 0.0 x10^3/uL (0.0-0.7) Basophils # (Auto) 0.0 x10^3/uL (0.0-0.2) Sodium Level 139 mmol/L (136-145) Potassium Level 3.8 mmol/L (3.5-5.1) Chloride Level 104 mmol/L (98-107) Carbon Dioxide Level 26 mmol/L (21-32) Anion Gap 9 (6-14) Blood Urea Nitrogen 16 mg/dL (7-20) Creatinine 0.8 mg/dL (0.6-1.0) Estimated GFR (Cockcroft-Gault) 76.9 Glucose Level 95 mg/dL (70-99) Calcium Level 8.9 mg/dL (8.5-10.1) Medications Current Medications Ziprasidone (Geodon Im) 20 mg STK-MED ONCE IM ; Start 11/24/17 at 11:13; Stop at 11:14; Status DC Lorazepam (Ativan) 2 mg STK-MED ONCE .ROUTE ; Start 11/24/17 at 11:13; Stop at 11:15; Status DC Ziprasidone (Geodon Im) 10 mg 1X ONCE IM Last administered on 11/24/17at 11:19 ; Start 11/24/17 at 11:15; Stop 11/24/17 at 11:17; Status DC Lorazepam (Ativan) 2 mg 1X ONCE IV Last administered on 11/24/17at 11:19; Start 11/24/17 at 11:15; Stop 11/24/17 at 11:17; Status DC Sodium Chloride 1,000 ml @ 1,000 mls/hr Q1H IV Last administered on 11/24/17at 11:24; Start 11/24/17 at 11:13; Stop 11/24/17 at 12:12; Status DC Ziprasidone (Geodon Im) 10 mg 1X ONCE IM Last administered on 11/24/17at 17:17 ; Start 11/24/17 at 13:45; Stop 11/24/17 at 13:46; Status DC Lorazepam (Ativan) 2 mg 1X ONCE IV Last administered on 11/24/17at 15:40; Start 11/24/17 at 13:45; Stop 11/24/17 at 13:46; Status DC Dextrose/Lactated Ringer's 1,000 ml @ 125 mls/hr 1X ONCE IV ; Start 11/24/17 at 16:30; Stop 11/25/17 at 00:29; Status DC Ziprasidone (Geodon Im) 10 mg PRN Q12HR PRN IM AGITATION, 2ND CHOICE; Start at 16:30 Levothyroxine Sodium (Synthroid) 112 mcg DAILY07 PO Last administered on at 09:39; Start 11/25/17 at 07:00 Valacyclovir HCl (Valtrex) 1,000 mg DAILY PO Last administered on 11/26/17at 09: 39; Start 11/25/17 at 09:00 Multivitamins 10 ml/Thiamine HCl 100 mg/Folic Acid 1 mg/Sodium Chloride 1,011.2 ml @ 1,000.088 mls/hr 1X ONCE IV Last administered on 11/24/17at 17:18; Start 11/24/17 at 17:00; Stop 11/24/17 at 18:00; Status DC Enoxaparin Sodium (Lovenox 40mg Syringe) 40 mg 1X ONCE SQ Last administered on 11/24/17at 18:27; Start 11/24/17 at 17:00; Stop 11/24/17 at 17:01; Status DC Lorazepam (Ativan) 2 mg STK-MED ONCE .ROUTE ; Start 11/24/17 at 19:21; Stop at 19:22; Status DC Lorazepam (Ativan) 2 mg PRN Q3HRS PRN IV ANXIETY / AGITATION Last administered on 11/25/17at 05:49; Start 11/24/17 at 19:45 Amoxicillin/ Clavulanate Potassium (Augmentin 875/ 125mg) 1 tab BID PO Last administered on 11/26/17at 09:39; Start 11/25/17 at 15:00 Lactobacillus Rhamnosus (Culturelle) 1 cap BID PO Last administered on at 09:39; Start 11/25/17 at 21:00 Clonazepam (KlonoPIN) 1 mg PRN Q4HRS PRN PO ANXIETY / AGITATION; Start at 21:00 Haloperidol (Haldol) 5 mg PRN Q6HRS PRN PO AGITATION; Start 11/25/17 at 21:00 Nicotine Polacrilex (Nicorette Gum) 1 each PRN Q1HR PRN BC SMOKING CESSATION Last administered on 11/26/17at 00:16; Start 11/25/17 at 23:45 Active Scripts Active Valtrex (Valacyclovir Hcl) 1,000 Mg Tablet 1 Tab PO DAILY Gabapentin 300 Mg Capsule 300 Mg PO TID 10 Days Prazosin Hcl 1 Mg Capsule 1 Cap PO QHS Synthroid (Levothyroxine Sodium) 112 Mcg Tablet 1 Tab PO DAILY Pristiq Er (Desvenlafaxine Succinate) 100 Mg Tab.er.24h 1 Tab PO DAILY Vitals/I & O Vital Sign - Last 24 Hours 11/25/17 11/25/17 11/25/17 11/25/17 11:00 12:00 12:00 16:00 Pulse 79 98 Resp B/P (MAP) 141/85 (103) 138/77 (97) Pulse Ox 98 98 O2 Delivery Room Air Room Air Room Air Room Air 11/25/17 11/25/17 11/26/17 16:00 23:59 07:00 Temp 98.2 97.4 98.2 97.4 Pulse 96 83 68 Resp 21 18 B/P (MAP) 136/88 (104) 122/83 (96) 102/62 (75) Pulse Ox 98 99 100 O2 Delivery Room Air Room Air Room Air Intake and Output 11/25/17 11/25/17 11/26/17 15:00 23:00 07:00 Intake Total 0 ml Output Total 0 ml Balance 0 ml SHANDA SAGE MD Nov 26, 2017 10:06
[2017-11-26 11:00] VITALS: BP 105/64
--- NOTE | 2017-11-26 14:25 | RAD ---
Left upper extremity venous Doppler ultrasound History: DX: Left arm swelling/pain Comparison: None. Procedure: Color flow Doppler, Doppler spectral analysis, and 2D images are obtained with and without compression in the jugular vein, subclavian vein, axillary vein, brachial vein, radial vein, ulnar vein, and basilic and cephalic veins. Findings: There is normal color flow, augmentation, and compressibility of all visualized vein segments. No evidence of deep venous thrombus is present. IMPRESSION: No evidence of left upper extremity deep venous thrombosis. Electronically signed by: Jose Luis Bronson MD (11/26/2017 2:21 PM) [id number]
[2017-11-26 14:46] VITALS: BP 115/70
[2017-11-26] MEDS ORDERED: AMOX1TAB11 PO (15:08)
--- NOTE | 2017-11-26 15:26 | PDOC3 ---
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 Final Diagnosis Problems Medical Problems: (1) Drug-induced psychotic disorder Status: Acute Brief Hospital Course Allergies Allergies Coded Allergies Type Severity Reaction Last Updated Verified Sulfa (Sulfonamide Antibiotics) Allergy Intermediate 11/25/17 Yes Vital Signs Vital Signs Date Time Temp Pulse Resp B/P (MAP) Pulse Ox O2 Delivery O2 Flow Rate FiO2 11/26/17 14:46 97.7 77 18 115/70 (85) 100 Room Air 97.7 Lab Results Laboratory Tests Test 11/24/17 18:30 11/25/17 10:35 Nasal Screen MRSA (PCR) Negative (Negative) White Blood Count 6.0 x10^3/uL (4.0-11.0) Red Blood Count 4.23 x10^6/uL (3.50-5.40) Hemoglobin 13.2 g/dL (12.0-15.5) Hematocrit 39.2 % (36.0-47.0) Mean Corpuscular Volume 93 fL (79-100) Mean Corpuscular Hemoglobin 31 pg (25-35) Mean Corpuscular Hemoglobin Concent 34 g/dL (31-37) Red Cell Distribution Width 13.6 % (11.5-14.5) Platelet Count 265 x10^3/uL (140-400) Neutrophils (%) (Auto) 57 % (31-73) Lymphocytes (%) (Auto) 35 % (24-48) Monocytes (%) (Auto) 7 % (0-9) Eosinophils (%) (Auto) 1 % (0-3) Basophils (%) (Auto) 1 % (0-3) Neutrophils # (Auto) 3.4 x10^3uL (1.8-7.7) Lymphocytes # (Auto) 2.1 x10^3/uL (1.0-4.8) Monocytes # (Auto) 0.4 x10^3/uL (0.0-1.1) Eosinophils # (Auto) 0.0 x10^3/uL (0.0-0.7) Basophils # (Auto) 0.0 x10^3/uL (0.0-0.2) Sodium Level 139 mmol/L (136-145) Potassium Level 3.8 mmol/L (3.5-5.1) Chloride Level 104 mmol/L (98-107) Carbon Dioxide Level 26 mmol/L (21-32) Anion Gap 9 (6-14) Blood Urea Nitrogen 16 mg/dL (7-20) Creatinine 0.8 mg/dL (0.6-1.0) Estimated GFR (Cockcroft-Gault) 76.9 Glucose Level 95 mg/dL (70-99) Calcium Level 8.9 mg/dL (8.5-10.1) Brief Hospital Course Ms. Garcia is a 47 old [white female admitted for methamphetamine induced psychosis, Cleared from [facility] life crisis to be on OP psych. Some bilateral arm swelling, started on PO augmentin, US neg . SHe could not wait for xrays. ABle to move both forearms, maybe she punched something? OK to dc, rx augmentin called to her pharmacy by RN Seen and examined 2 notes today Discharge Information Condition at Discharge: Improved, Stable Disposition/Orders: D/C to Home Scheduled Amoxicillin/Potassium Clav (Amox Tr-K Clv 875-125 Mg Tab) 1 Each Tablet, 1 TAB PO BID for 7 Days, #14 Ref 0 (Reported) Entered as Reported by: ANASTASIA LANDRY on 11/26/17 1508 Desvenlafaxine Succinate (Pristiq Er) 100 Mg Tab.er.24h, 1 TAB PO DAILY, #30 Ref 1 Prescribed by: EUSEBIA MOYA MD on 09/16/17453 Last Action: HELD on 11/24/171619 by LUPE BRAGG MD Gabapentin (Gabapentin) 300 Mg Capsule, 300 MG PO TID for 10 Days, #30 Prescribed by: EUSEBIA MOYA MD on 09/16/17453 Last Action: HELD on 11/24/171619 by LUPE BRAGG MD Levothyroxine Sodium (Synthroid) 112 Mcg Tablet, 1 TAB PO DAILY, #30 Ref 0 Prescribed by: EUSEBIA MOYA MD on 09/16/17453 Last Action: Continued on 11/24/171619 by LUPE BRAGG MD Prazosin Hcl (Prazosin Hcl) 1 Mg Capsule, 1 CAP PO QHS, #30 Ref 0 Prescribed by: EUSEBIA MOYA MD on 09/16/17453 Last Action: HELD on 11/24/171619 by LUPE BRAGG MD Valacyclovir Hcl (Valtrex) 1,000 Mg Tablet, 1 TAB PO DAILY, #30 Ref 0 Prescribed by: EUSEBIA MOYA MD on 09/16/17453 Last Action: Converted on 11/24/171619 by MD CHU REYNA CHERRIE Y MD Nov 26, 2017 15:26
--- NOTE | 2017-11-26 16:21 | RAD ---
3 views right forearm 11/26/2017 10:08 AM Indication: PAIN AND SWELLING Comparison: None Findings: There is no acute fracture or dislocation. Articular surfaces are uninterrupted and smooth. Soft tissues are unremarkable. Impression: No evidence of acute osseous abnormality. Electronically signed by: Rebel Gray MD (11/26/2017 4:17 PM) [facility]
--- NOTE | 2017-11-26 16:23 | RAD ---
2 views left hand 11/26/2017 10:09 AM Indication: PAIN AND SWELLING Comparison: None Findings: There is no acute fracture or dislocation. Articular surfaces are uninterrupted and smooth. Soft tissues are unremarkable. Impression: No evidence of acute osseous abnormality. Electronically signed by: Rebel Gray MD (11/26/2017 4:19 PM) [facility]
== END 2017-11-26 15:30 | disposition home or self-care (01) | DRG 602 ==
LOC: ER 10:58 → 1 WEST ICU 15:50 → 5 SOUTH 11-25 16:28
PROVIDERS: ADMIT Family Medicine; ATTEND Family Medicine
DX: L03.114 Cellulitis of left upper limb (principal); G93.41 Metabolic encephalopathy; F31.81 Bipolar II disorder; F15.159 Other stimulant abuse with stimulant-induced psychotic disorder, unspecified; F17.210 Nicotine dependence, cigarettes, uncomplicated; E03.9 Hypothyroidism, unspecified; B02.9 Zoster without complications; F15.129 Other stimulant abuse with intoxication, unspecified; F60.9 Personality disorder, unspecified; Z88.2 Allergy status to sulfonamides; Z79.899 Other long term (current) drug therapy
CPT/HCPCS: 36415; 73090; 73120; 80048; 80076; 80307; 80329; 81001; 81025; 83735; 85025; 87641; 93005; 93971; 96361; 96372; 96374; 96375; 96376; G0480; G6039; J1650; J2060; J3486; J7030; 99285-25; G0479

== ENCOUNTER 2018-07-15 09:04 | Emergency (ER) | payer OTHER ==
[~2018-07-15] VITALS: Ht 170.2 cm; Wt 66.7 kg
[~2018-07-15 09:04] MED LIST changes: +AMOX1TAB11 PO; -GABA-586 PO; +GABA300C18 PO
--- NOTE | 2018-07-15 09:27 | PHYS DOC ---
Past Medical History Past Medical History: Bipolar, Other Additional Past Medical Histor: borderline split personality disorder, bipolar II Past Surgical History: Tubal ligation, Other Additional Past Surgical Histo: tubes ligation reversed Alcohol Use: Occasionally Drug Use: Methamphetamine Adult General Chief Complaint Chief Complaint: ABDOMINAL PAIN HPI HPI Patient is a 48 year old female with history of bipolar, chronic neck pain, smoking, who presents to the ED today complaining of 10 out of 10 right upper quadrant abdominal pain that began this morning. Patient denies any nausea or vomiting. Denies any diarrhea. She states she was seen by the PCP yesterday for mid right back pain, she states she's had dysuria for four months and has been on antibiotics on and off for four months, she states she was put on Cipro. She states her bladder has had trouble emptying she is supposed to follow-up with the urologist for this. She also states she is supposed to have neck surgery. She states she was started on nicotine patches yesterday. Patient denies any chest pain or shortness of breath. Patient came in via EMS, EMS stated she refused IV stating she does not like needles. Review of Systems Review of Systems Constitutional: Denies fever or chills [] Eyes: Denies change in visual acuity, redness, or eye pain [] HENT: Denies nasal congestion or sore throat [] Respiratory: Denies cough or shortness of breath [] Cardiovascular: No additional information not addressed in HPI [] GI: Reports right upper quadrant abdominal pain, denies nausea, vomiting, bloody stools or diarrhea [] : Reports dysuria for 4 months, denies hematuria [] Musculoskeletal: Reports neck pain, denies joint pain [] Integument: Denies rash or skin lesions [] Neurologic: Denies headache, focal weakness or sensory changes [] All other systems were reviewed and found to be within normal limits, except as documented in this note. Current Medications Current Medications Current Medications Medications (Trade) Dose Ordered Sig/Mauricio Start Time Stop Time Status Last Admin Dose Admin Info (CONTRAST GIVEN -- Rx MONITORING) 1 each PRN DAILY PRN 07/15/18 11:00 07/17/18 10:59 Iohexol (Omnipaque 240 Mg/ml) 30 ml 1X ONCE 07/15/18 10:45 07/15/18 10:48 DC Iohexol (Omnipaque 300 Mg/ml) 75 ml 1X ONCE 07/15/18 10:45 07/15/18 10:48 DC 07/15/18 10:45 75 ML Ketorolac Tromethamine (Toradol 30mg Vial) 30 mg 1X ONCE 07/15/18 10:00 07/15/18 10:01 DC 07/15/18 10:09 30 MG Ondansetron HCl (Zofran) 4 mg 1X ONCE 07/15/18 10:00 07/15/18 10:01 DC 07/15/18 10:09 4 MG Allergies Allergies Allergies Coded Allergies Type Severity Reaction Last Updated Verified Sulfa (Sulfonamide Antibiotics) Allergy Intermediate 11/25/17 Yes Physical Exam Physical Exam Constitutional: Well developed, well nourished, no acute distress, non-toxic appearance. [] HENT: Normocephalic, atraumatic, bilateral external ears normal, oropharynx moist, no oral exudates, nose normal. [] Eyes: PERRLA, EOMI, conjunctiva normal, no discharge. [] Neck: Normal range of motion, no tenderness, supple, no stridor. [] Cardiovascular:Heart rate regular rhythm, no murmur [] Lungs & Thorax: Bilateral breath sounds clear to auscultation [] Abdomen: Bowel sounds normal, soft, tenderness to the right upper quadrant with negative Roland sign, no right lower quadrant tenderness no masses, no pulsatile masses. [] Skin: Warm, dry, no erythema, no rash. [] Back: No tenderness, no CVA tenderness. [] Extremities: No tenderness, no cyanosis, no clubbing, ROM intact, no edema. [] Neurologic: Alert and oriented X 3, normal motor function, normal sensory function, no focal deficits noted. [] Psychologic: Appears anxious, has flight of ideas Current Patient Data Vital Signs Vital Signs Date Time Temp Pulse Resp B/P (MAP) Pulse Ox O2 Delivery O2 Flow Rate FiO2 07/15/18 12:44 79 102/59 (73) 96 Room Air 07/15/18 11:59 19 07/15/18 09:04 98.6 98.6 Lab Values Laboratory Tests Test 07/15/18 09:56 07/15/18 10:45 White Blood Count 5.9 x10^3/uL (4.0-11.0) Red Blood Count 3.87 x10^6/uL (3.50-5.40) Hemoglobin 12.1 g/dL (12.0-15.5) Hematocrit 36.4 % (36.0-47.0) Mean Corpuscular Volume 94 fL (79-100) Mean Corpuscular Hemoglobin 31 pg (25-35) Mean Corpuscular Hemoglobin Concent 33 g/dL (31-37) Red Cell Distribution Width 13.1 % (11.5-14.5) Platelet Count 217 x10^3/uL (140-400) Neutrophils (%) (Auto) 61 % (31-73) Lymphocytes (%) (Auto) 25 % (24-48) Monocytes (%) (Auto) 11 % (0-9) H Eosinophils (%) (Auto) 2 % (0-3) Basophils (%) (Auto) 1 % (0-3) Neutrophils # (Auto) 3.6 x10^3uL (1.8-7.7) Lymphocytes # (Auto) 1.5 x10^3/uL (1.0-4.8) Monocytes # (Auto) 0.7 x10^3/uL (0.0-1.1) Eosinophils # (Auto) 0.1 x10^3/uL (0.0-0.7) Basophils # (Auto) 0.0 x10^3/uL (0.0-0.2) Sodium Level 144 mmol/L (136-145) Potassium Level 4.1 mmol/L (3.5-5.1) Chloride Level 106 mmol/L (98-107) Carbon Dioxide Level 28 mmol/L (21-32) Anion Gap 10 (6-14) Blood Urea Nitrogen 22 mg/dL (7-20) H Creatinine 0.7 mg/dL (0.6-1.0) Estimated GFR (Cockcroft-Gault) 89.3 BUN/Creatinine Ratio 31 (6-20) H Glucose Level 96 mg/dL (70-99) Calcium Level 8.7 mg/dL (8.5-10.1) Total Bilirubin 0.1 mg/dL (0.2-1.0) L Aspartate Amino Transferase (AST) 24 U/L (15-37) Alanine Aminotransferase (ALT) 16 U/L (14-59) Alkaline Phosphatase 91 U/L (46-116) Total Protein 6.4 g/dL (6.4-8.2) Albumin 3.3 g/dL (3.4-5.0) L Albumin/Globulin Ratio 1.1 (1.0-1.7) Lipase 1040 U/L (73-393) H Ethyl Alcohol Level < 10 mg/dL (0-10) Urine Collection Type Void Urine Color Yellow Urine Clarity Cloudy Urine pH 7.5 Urine Specific [place] 1.025 Urine Protein Negative mg/dL (NEG-TRACE) Urine Glucose (UA) Negative mg/dL (NEG) Urine Ketones (Stick) Negative mg/dL (NEG) Urine Blood Negative (NEG) Urine Nitrite Negative (NEG) Urine Bilirubin Negative (NEG) Urine Urobilinogen Dipstick 0.2 mg/dL (0.2 mg/dL) Urine Leukocyte Esterase Trace (NEG) Urine RBC 0 /HPF (0-2) Urine WBC 1-4 /HPF (0-4) Urine Squamous Epithelial Cells Mod /LPF Urine Amorphous Sediment Present /HPF Urine Bacteria Moderate /HPF (0-FEW) Urine Test Negative (NEG) Urine Opiates Screen Neg (NEG) Urine Methadone Screen Neg (NEG) Urine Barbiturates Neg (NEG) Urine Phencyclidine Screen Neg (NEG) Urine Amphetamine/Methamphetamine Pos (NEG) Urine Benzodiazepines Screen Pos (NEG) Urine Cocaine Screen Neg (NEG) Urine Cannabinoids Screen Neg (NEG) Urine Ethyl Alcohol Neg (NEG) Laboratory Tests 07/15/18 09:56 Laboratory Tests 07/15/18 09:56 EKG EKG [] Radiology/Procedures Radiology/Procedures []PROCEDURE: CT ABD PELV W/ IV CONTRST ONLY CT ABD PELV W/ IV CONTRST ONLY Indication: Upper abdominal pain, elevated lipase Technique: Postcontrast CT imaging was performed of the abdomen pelvis, multiplanar reconstruction images submitted. No oral contrast was given. One or more of the following individualized dose reduction techniques were utilized for this examination: 1. Automated exposure control 2. Adjustment of the mA and/or kV according to patient size 3. Use of iterative reconstruction technique. Comparison: None Findings: There is motion degradation. There is no abnormality of the limited visualized lung bases, no pleural fluid. Both kidneys enhance, no hydronephrosis. Gallbladder is present without obvious intraluminal abnormality by CT. No focal abnormality is identified of the liver, spleen, pancreas. There is no defined fluid collection associated with the pancreas. There is no adrenal nodularity. Accurate evaluation of bowel is limited without oral contrast and also due to motion. Normal appendix is visualized. There is no free air or free fluid. There is probable small bowel wall thickening in the left upper quadrant of the abdomen. There is mild lumbar dextroscoliosis. There is [id number] degenerative disc disease at L3-4, minimally L4-5. IMPRESSION: 1. There is no significant abnormality of the pancreas although imaging findings can be delayed relative to laboratory changes of pancreatitis. 2. Evaluation of bowel is limited without oral contrast, likely small bowel wall thickening in the left upper quadrant as may be seen with enteritis. Electronically signed by: Evan Tillman MD (07/15/2018 12:38 PM) [id number] DICTATED and SIGNED BY: EVAN TILLMAN MD DATE: 07/15/18 1238 PROCEDURE: ABDOMEN LTD ABDOMEN LTD History: Right upper quadrant abdominal pain Comparison: None. Findings: Multiple sonographic images of the abdomen are submitted. There is no abnormality of the visualized pancreas. Hepatic echotexture is within normal limits, no focal hepatic lesion demonstrated. Gallbladder is present without intraluminal abnormality, wall thickening, pericholecystic fluid. There is segmental visualization of the inferior vena cava. Right kidney measured 10.6 x 6.1 x 4.5 cm, no hydronephrosis. Common bile duct is within normal limits about 0.5 cm. Impression: 1. No significant abnormality is demonstrated. Electronically signed by: Evan Tillman MD (07/15/2018 10:01 AM) [id number] DICTATED and SIGNED BY: EVAN TILLMAN MD DATE: 07/15/18 1001 Course & Med Decision Making Course & Med Decision Making Pertinent Labs and Imaging studies reviewed. (See chart for details) This is a 48-year-old female patient presenting to the ED today complaining of right upper quadrant abdominal pain that began this morning. Also complaining of dysuria for 4 months, was seen by the PCP yesterday, started on Cipro. See history of present illness Patient refused IVs on arrival to the ED. Nursing staff as well as me had to talk to patient to convince her to accept IVs CBC with a normal WBC, CMP findings, lipase 1040, patient states she does not drink, urine analysis is noted for trace amount of leukocytes. Right upper quadrant abdominal ultrasound is negative, CT of the abdomen and pelvic was negative for pancreatitis. Urine analysis was noted for moderate Patient was offered admission in the hospital Patient has swing back and forth accepting and refusing admission. She is complaining she didn't like our phones, she complained she didn't like the color of the room complaints she didn't like how the bed was set up in the room. We have moved back and forth convincing her to stay, while she accepts to stay then changes her plan. She has cursed and used foul language throughout her stay. Dr. Ku went to see patient, he states patient informed him she does not feel safe at home he requested we consult PAT team. Patient was in the room with a male friend who will not leave patient in the room alone. Gigi from the PAT came and talked to patient. He states patient has all the resources she needs and refused any further help Patient refused IV fluids and signed out AMA. She is AO X 3 and able to make her own decisions. I had a head discussed with patient the risk of leaving AMA including and disability. She signed out left. Dragon Disclaimer Dragon Disclaimer This electronic medical record was generated, in whole or in part, using a voice recognition dictation system. Departure Departure Impression: Primary Impression: Right upper quadrant abdominal pain Additional Impressions: Acute pancreatitis Methamphetamine use Referrals: UNKNOWN PCP NAME (PCP) Problem Qualifiers Additional Impressions: Acute pancreatitis Pancreatitis type: unspecified pancreatitis type Acute pancreatitis complication: unspecified Qualified Codes: K85.90 - Acute pancreatitis without necrosis or infection, unspecified NINA HUFFMAN APRN Jul 15, 2018 09:27
[2018-07-15] MEDS ORDERED: KETOROLAC 30 MG/ML VIAL. IV ONE (10:00)
[2018-07-15] MEDS ORDERED: ONDANSETRON PF 4 MG/2 ML VIAL. IV ONE (10:00)
[2018-07-15 10:05] LABS: BASO % 1 % (0-3); EOS # 0.1 x10^3/uL (0.0-0.7); EOS % 2 % (0-3); HEMATOCRIT 36.4 % (36.0-47.0); HEMOGLOBIN 12.1 g/dL (12.0-15.5); LYMPH # 1.5 x10^3/uL (1.0-4.8); LYMPH % 25 % (24-48); MEAN CORPUSCULAR HEMOGLOBIN 31 pg (25-35); MEAN CORPUSCULAR HGB CONC 33 g/dL (31-37); MEAN CORPUSCULAR VOLUME 94 fL (79-100); MONO # 0.7 x10^3/uL (0.0-1.1); MONO % 11 % (0-9); NEUT # 3.6 x10^3uL (1.8-7.7); NEUT % 61 % (31-73); PLATELET COUNT 217 x10^3/uL (140-400); RED BLOOD COUNT 3.87 x10^6/uL (3.50-5.40); RED CELL DISTRIBUTION WIDTH 13.1 % (11.5-14.5); WHITE BLOOD COUNT 5.9 x10^3/uL (4.0-11.0)
--- NOTE | 2018-07-15 10:05 | RAD ---
ABDOMEN LTD History: Right upper quadrant abdominal pain Comparison: None. Findings: Multiple sonographic images of the abdomen are submitted. There is no abnormality of the visualized pancreas. Hepatic echotexture is within normal limits, no focal hepatic lesion demonstrated. Gallbladder is present without intraluminal abnormality, wall thickening, pericholecystic fluid. There is segmental visualization of the inferior vena cava. Right kidney measured 10.6 x 6.1 x 4.5 cm, no hydronephrosis. Common bile duct is within normal limits about 0.5 cm. Impression: 1. No significant abnormality is demonstrated. Electronically signed by: Sean Vasquez MD (07/15/2018 10:01 AM) [id number]
[2018-07-15 10:16] LABS: CALCIUM 8.7 mg/dL (8.5-10.1); CREATININE 0.7 mg/dL (0.6-1.0); GFR 89.3; POTASSIUM 4.1 mmol/L (3.5-5.1)
[2018-07-15 10:22] LABS: ALBUMIN 3.3 g/dL (3.4-5.0); ALBUMIN/GLOBULIN RATIO 1.1 (1.0-1.7); TOTAL BILIRUBIN 0.1 mg/dL (0.2-1.0); TOTAL PROTEIN 6.4 g/dL (6.4-8.2)
[2018-07-15] MEDS ORDERED: IOHEXOL 300 MG/ML 100ML VIAL. IV ONE (10:45)
[2018-07-15] MEDS ORDERED: IOHEXOL 240 MG/ML 50ML VIAL. PO ONE (10:45)
[2018-07-15] MEDS ORDERED: CONTRAST GIVEN. MC PRN (11:00)
[2018-07-15 11:03] LABS: BILIRUBIN,URINE NEGATIVE (NEG); CLARITY,URINE CLOUDY; COLOR,URINE YELLOW; NITRITE,URINE NEGATIVE (NEG); PH,URINE 7.5; PROTEIN,URINE NEGATIVE (NEG-TRACE); UROBILINOGEN,URINE 0.2 mg/dL (0.2 mg/dL)
[2018-07-15 11:10] LABS: AMPHETAMINE/METHAMPHETAMINE POS (NEG); BARBITURATES NEG (NEG); BENZODIAZEPINES POS (NEG); CANNABINOIDS NEG (NEG); COCAINE NEG (NEG); METHADONE NEG (NEG); OPIATES NEG (NEG); PHENCYCLIDINE NEG (NEG)
[2018-07-15 11:12] LABS: AMORPHOUS SEDIMENT,UR PRESENT /HPF; SQUAMOUS EPITHELIAL CELL,UR MOD /LPF
[2018-07-15 11:13] LABS: BACTERIA,URINE MODERATE /HPF (0-FEW); RBC,URINE 0 /HPF (0-2)
[2018-07-15 12:01] LABS: U PREG PATIENT NEGATIVE (NEG)
--- NOTE | 2018-07-15 12:41 | RAD ---
CT ABD PELV W/ IV CONTRST ONLY Indication: Upper abdominal pain, elevated lipase Technique: Postcontrast CT imaging was performed of the abdomen pelvis, multiplanar reconstruction images submitted. No oral contrast was given. One or more of the following individualized dose reduction techniques were utilized for this examination: 1. Automated exposure control 2. Adjustment of the mA and/or kV according to patient size 3. Use of iterative reconstruction technique. Comparison: None Findings: There is motion degradation. There is no abnormality of the limited visualized lung bases, no pleural fluid. Both kidneys enhance, no hydronephrosis. Gallbladder is present without obvious intraluminal abnormality by CT. No focal abnormality is identified of the liver, spleen, pancreas. There is no defined fluid collection associated with the pancreas. There is no adrenal nodularity. Accurate evaluation of bowel is limited without oral contrast and also due to motion. Normal appendix is visualized. There is no free air or free fluid. There is probable small bowel wall thickening in the left upper quadrant of the abdomen. There is mild lumbar dextroscoliosis. There is [id number] degenerative disc disease at L3-4, minimally L4-5. IMPRESSION: 1. There is no significant abnormality of the pancreas although imaging findings can be delayed relative to laboratory changes of pancreatitis. 2. Evaluation of bowel is limited without oral contrast, likely small bowel wall thickening in the left upper quadrant as may be seen with enteritis. Electronically signed by: Sean Vasquez MD (07/15/2018 12:38 PM) [id number]
--- NOTE | 2018-07-15 13:31 | PDOC1 ---
History and Physical Date of Admission Date of Admission DATE: 07/15/18 TIME: 13:31 Identification/Chief Complaint Chief Complaint Abdominal pain Source Source: Chart review, Patient History of Present Illness History of Present Illness Patient is a 48 year old female with history of bipolar, chronic neck pain, Substance abuse, meth, Thyroid disorder, Ehler Danlos, s/p C4/C5 fusion, smoking , who presents to the ED today complaining of 10 out of 10 right upper quadrant abdominal pain that began this morning. Patient denies any nausea or vomiting. Denies any diarrhea. She states she was seen by her PCP yesterday for mid right back pain, she states she's had dysuria for four months and has been on antibiotics on and off for four months, she states she was put on Cipro. She states her bladder has had trouble emptying she is supposed to follow-up with the urologist for this. She also states she is supposed to have neck surgery. She states she was started on nicotine patches yesterday. Patient denies any chest pain or shortness of breath. She is very scattered with her history. She obsesses about oral lesions as well. On further review she notes that she just stopped injected methamphetamine 12 days ago. However, her UDS is positive for amphetamine and benzodiazepines. Has an active script for xanax taper from a recent drug rehabilitation stay. She was also found with Lipase > 1000. RUQ US no abnormalities and CT abdomen/pelvis as well. I was called for admission for acute pancreatitis of uncertain etiology. She has a gentleman with her who identifies himself as Wayne, and she states she needs to leave prior to admission, wishes to "get some stuff" from her car, which another male just took from the ED parking lot and wishes to check on her 10 year old after school at 3:00pm. I have informed her she cannot leave the hospital and come back and would be up to the ED physician if she is stable for discharge after some IVF resuscitation. Past Medical History Cardiovascular: No pertinent hx Pulmonary: No pertinent hx GI: No pertinent hx Heme/Onc: No pertinent hx Psych: Anxiety, Addictions, Bipolar, Depression Musculoskeletal: low back pain Rheumatologic: No pertinent hx Infectious disease: No pertinent hx ENT: No pertinent hx Renal/: No pertinent hx Endocrine: No pertinent hx Dermatology: No pertinent hx Grav: 1 Para: 1 Past Surgical History Past Surgical History: Other (Cervical fusion C4/5) Family History Family History: Alcohol Abuse Family History: Parent Social History Smoke: 1 pack per day ALCOHOL: heavy Drugs: Crystal meth Current Medications Current Medications Current Medications Ketorolac Tromethamine (Toradol 30mg Vial) 30 mg 1X ONCE IV Last administered on 07/15/18at 10:09; Start 07/15/18 at 10:00; Stop 07/15/18 at 10:01; Status DC Ondansetron HCl (Zofran) 4 mg 1X ONCE IV Last administered on 07/15/18at 10:09; Start 07/15/18 at 10:00; Stop 07/15/18 at 10:01; Status DC Iohexol (Omnipaque 240 Mg/ml) 30 ml 1X ONCE PO ; Start 07/15/18 at 10:45; Stop 07/15/18 at 10:48; Status DC Iohexol (Omnipaque 300 Mg/ml) 75 ml 1X ONCE IV Last administered on 07/15/18at 10:45; Start 07/15/18 at 10:45; Stop 07/15/18 at 10:48; Status DC Info (CONTRAST GIVEN -- Rx MONITORING) 1 each PRN DAILY PRN MC SEE COMMENTS; Start 07/15/18 at 11:00; Stop 07/17/18 at 10:59 Active Scripts Active Valtrex (Valacyclovir Hcl) 1,000 Mg Tablet 1 Tab PO DAILY Gabapentin 300 Mg Capsule 300 Mg PO TID 10 Days Prazosin Hcl 1 Mg Capsule 1 Cap PO QHS Synthroid (Levothyroxine Sodium) 112 Mcg Tablet 1 Tab PO DAILY Pristiq Er (Desvenlafaxine Succinate) 100 Mg Tab.er.24h 1 Tab PO DAILY Reported Amox Tr-K Clv 875-125 Mg Tab (Amoxicillin/Potassium Clav) 1 Each Tablet 1 Tab PO BID 7 Days Allergies Allergies: Coded Allergies: Sulfa (Sulfonamide Antibiotics) (Verified Allergy, Intermediate, 11/25/17) ROS General: YES: Fatigue, Malaise, Appetite PSYCHOLOGICAL ROS: YES: Anxiety, Behavioral Disorder, Depression, Hostility, Irritablity, Memory difficulties, Mood Swings, Obsessive thoughts, Sleep disturbances; No: Concentration difficultie, Decreased libido, Disorientation, Hallucinations, Physical abuse, Sexual abuse, Suicidal ideation, Other Eyes: No Blurry vision, No Decreased vision, No Double vision, No Dry eyes, No Excessive tearing, No Eye Pain, No Itchy Eyes, No Loss of vision, No Photophobia , No Scotomata, No Uses contacts, No Uses glasses, No Other HEENT: No: Heacaches, Visual Changes, Hearing change, Nasal congestion, Nasal discharge, Oral lesions, Sinus pain, Sore Throat, Epistaxis, Sneezing, Snoring, Tinnitus, Vertigo, Vocal changes, Other ALLERGY AND IMMUNOLOGY: No: Hives, Insect Bite Sensitivity, Itchy/Watery Eyes, Nasal Congestion, Post Nasal Drip, Seasonal Allergies, Other Hematological and Lymphatic: No: Bleeding Problems, Blood Clots, Blood Transfusions, Brusing, Night Sweats, Pallor, Swollen Lymph Nodes, Other ENDOCRINE: No: Breast Changes, Galactorrhea, Hair Pattern Changes, Hot Flashes , Malaise/lethargy, Mood Swings, Palpitations, Polydipsia/polyuria, Skin Changes , Temperature Intolerance, Unexpected Weight Changes, Other Breast: No New/Changing Breast Lumps, No Nipple changes, No Nipple discharge, No Other Respiratory: No: Cough, Hemoptysis, Orthopnea, Pleuritic Pain, Shortness of breath, SOB with excertion, Sputum Changes, Stridor, Tachypnea, Wheezing, Other Cardiovascular: No Chest Pain, No Palpitations, No Orthopnea, No Paroxysmal Noc. Dyspnea, No Edema, No Lt Headedness, No Other Gastrointestinal: Yes Nausea, Yes Abdominal Pain; No Vomiting, No Diarrhea, No Constipation, No Melena, No Hematochezia, No Other Genitourinary: No Dysuria, No Frequency, No Incontinence, No Hematuria, No Retention, No Discharge, No Urgency, No Pain, No Flank Pain, No Other, No , No , No , No , No , No , No Musculoskeletal: No Gait Disturbance, No Joint Pain, No Joint Stiffness, No Joint Swelling, No Muscle Pain, No Muscular Weakness, No Pain In:, No Swelling In:, No Other Neurological: Yes Behavorial Changes, Yes Memory Loss; No Bowel/Bladder ControlChng, No Confusion, No Dizziness, No Gait Disturbance , No Headaches, No Impaired Coord/balance, No Numbness/Tingling, No Seizures, No Speech Problems, No Tremors, No Visual Changes, No Weakness, No Other Skin: Yes Skin Lesion Changes; No Dry Skin, No Eczema, No Hair Changes, No Lumps, No Mole Changes, No Mottling, No Nail Changes, No Pruritus, No Rash, No Other, No Acne Physical Exam General: Alert, Oriented X3, Cooperative, No acute distress HEENT: Atraumatic, PERRLA, EOMI, Other (oral aphthous ulcers) Lungs: Clear to auscultation, Normal air movement Heart: S1S2, RRR Abdomen: Normal bowel sounds, Soft, No hepatosplenomegaly, No masses, Other ( RUQ mildly tender) Rectal Exam: not examined Extremities: No clubbing, No cyanosis, No edema, Normal pulses, No tenderness/ swelling Skin: Other (Multiple sores, thrombophlebitis in bilateral AC fossa) Neuro: Normal gait, Normal speech, Strength at 5/5 X4 ext, Normal tone, Sensation intact, Cranial nerves 3-12 NL, Reflexes 2+ Psych/Mental Status: Mental status NL, Mood NL Vitals Vitals Vital Signs Date Time Temp Pulse Resp B/P (MAP) Pulse Ox O2 Delivery O2 Flow Rate FiO2 07/15/18 12:44 79 102/59 (73) 96 Room Air 07/15/18 11:59 19 07/15/18 09:04 98.6 98.6 Labs Labs Laboratory Tests Test 07/15/18 09:56 07/15/18 10:45 White Blood Count 5.9 x10^3/uL (4.0-11.0) Red Blood Count 3.87 x10^6/uL (3.50-5.40) Hemoglobin 12.1 g/dL (12.0-15.5) Hematocrit 36.4 % (36.0-47.0) Mean Corpuscular Volume 94 fL (79-100) Mean Corpuscular Hemoglobin 31 pg (25-35) Mean Corpuscular Hemoglobin Concent 33 g/dL (31-37) Red Cell Distribution Width 13.1 % (11.5-14.5) Platelet Count 217 x10^3/uL (140-400) Neutrophils (%) (Auto) 61 % (31-73) Lymphocytes (%) (Auto) 25 % (24-48) Monocytes (%) (Auto) 11 % (0-9) Eosinophils (%) (Auto) 2 % (0-3) Basophils (%) (Auto) 1 % (0-3) Neutrophils # (Auto) 3.6 x10^3uL (1.8-7.7) Lymphocytes # (Auto) 1.5 x10^3/uL (1.0-4.8) Monocytes # (Auto) 0.7 x10^3/uL (0.0-1.1) Eosinophils # (Auto) 0.1 x10^3/uL (0.0-0.7) Basophils # (Auto) 0.0 x10^3/uL (0.0-0.2) Sodium Level 144 mmol/L (136-145) Potassium Level 4.1 mmol/L (3.5-5.1) Chloride Level 106 mmol/L (98-107) Carbon Dioxide Level 28 mmol/L (21-32) Anion Gap 10 (6-14) Blood Urea Nitrogen 22 mg/dL (7-20) Creatinine 0.7 mg/dL (0.6-1.0) Estimated GFR (Cockcroft-Gault) 89.3 BUN/Creatinine Ratio 31 (6-20) Glucose Level 96 mg/dL (70-99) Calcium Level 8.7 mg/dL (8.5-10.1) Total Bilirubin 0.1 mg/dL (0.2-1.0) Aspartate Amino Transf (AST/SGOT) 24 U/L (15-37) Alanine Aminotransferase (ALT/SGPT) 16 U/L (14-59) Alkaline Phosphatase 91 U/L (46-116) Total Protein 6.4 g/dL (6.4-8.2) Albumin 3.3 g/dL (3.4-5.0) Albumin/Globulin Ratio 1.1 (1.0-1.7) Lipase 1040 U/L (73-393) Ethyl Alcohol Level < 10 mg/dL (0-10) Urine Collection Type Void Urine Color Yellow Urine Clarity Cloudy Urine pH 7.5 Urine Specific [place] 1.025 Urine Protein Negative mg/dL (NEG-TRACE) Urine Glucose (UA) Negative mg/dL (NEG) Urine Ketones (Stick) Negative mg/dL (NEG) Urine Blood Negative (NEG) Urine Nitrite Negative (NEG) Urine Bilirubin Negative (NEG) Urine Urobilinogen Dipstick 0.2 mg/dL (0.2 mg/dL) Urine Leukocyte Esterase Trace (NEG) Urine RBC 0 /HPF (0-2) Urine WBC 1-4 /HPF (0-4) Urine Squamous Epithelial Cells Mod /LPF Urine Amorphous Sediment Present /HPF Urine Bacteria Moderate /HPF (0-FEW) Urine Test Negative (NEG) Urine Opiates Screen Neg (NEG) Urine Methadone Screen Neg (NEG) Urine Barbiturates Neg (NEG) Urine Phencyclidine Screen Neg (NEG) Urine Amphetamine/Methamphetamine Pos (NEG) Urine Benzodiazepines Screen Pos (NEG) Urine Cocaine Screen Neg (NEG) Urine Cannabinoids Screen Neg (NEG) Urine Ethyl Alcohol Neg (NEG) Laboratory Tests Test 07/15/18 09:56 07/15/18 10:45 White Blood Count 5.9 x10^3/uL (4.0-11.0) Red Blood Count 3.87 x10^6/uL (3.50-5.40) Hemoglobin 12.1 g/dL (12.0-15.5) Hematocrit 36.4 % (36.0-47.0) Mean Corpuscular Volume 94 fL (79-100) Mean Corpuscular Hemoglobin 31 pg (25-35) Mean Corpuscular Hemoglobin Concent 33 g/dL (31-37) Red Cell Distribution Width 13.1 % (11.5-14.5) Platelet Count 217 x10^3/uL (140-400) Neutrophils (%) (Auto) 61 % (31-73) Lymphocytes (%) (Auto) 25 % (24-48) Monocytes (%) (Auto) 11 % (0-9) Eosinophils (%) (Auto) 2 % (0-3) Basophils (%) (Auto) 1 % (0-3) Neutrophils # (Auto) 3.6 x10^3uL (1.8-7.7) Lymphocytes # (Auto) 1.5 x10^3/uL (1.0-4.8) Monocytes # (Auto) 0.7 x10^3/uL (0.0-1.1) Eosinophils # (Auto) 0.1 x10^3/uL (0.0-0.7) Basophils # (Auto) 0.0 x10^3/uL (0.0-0.2) Sodium Level 144 mmol/L (136-145) Potassium Level 4.1 mmol/L (3.5-5.1) Chloride Level 106 mmol/L (98-107) Carbon Dioxide Level 28 mmol/L (21-32) Anion Gap 10 (6-14) Blood Urea Nitrogen 22 mg/dL (7-20) Creatinine 0.7 mg/dL (0.6-1.0) Estimated GFR (Cockcroft-Gault) 89.3 BUN/Creatinine Ratio 31 (6-20) Glucose Level 96 mg/dL (70-99) Calcium Level 8.7 mg/dL (8.5-10.1) Total Bilirubin 0.1 mg/dL (0.2-1.0) Aspartate Amino Transf (AST/SGOT) 24 U/L (15-37) Alanine Aminotransferase (ALT/SGPT) 16 U/L (14-59) Alkaline Phosphatase 91 U/L (46-116) Total Protein 6.4 g/dL (6.4-8.2) Albumin 3.3 g/dL (3.4-5.0) Albumin/Globulin Ratio 1.1 (1.0-1.7) Lipase 1040 U/L (73-393) Ethyl Alcohol Level < 10 mg/dL (0-10) Urine Collection Type Void Urine Color Yellow Urine Clarity Cloudy Urine pH 7.5 Urine Specific [place] 1.025 Urine Protein Negative mg/dL (NEG-TRACE) Urine Glucose (UA) Negative mg/dL (NEG) Urine Ketones (Stick) Negative mg/dL (NEG) Urine Blood Negative (NEG) Urine Nitrite Negative (NEG) Urine Bilirubin Negative (NEG) Urine Urobilinogen Dipstick 0.2 mg/dL (0.2 mg/dL) Urine Leukocyte Esterase Trace (NEG) Urine RBC 0 /HPF (0-2) Urine WBC 1-4 /HPF (0-4) Urine Squamous Epithelial Cells Mod /LPF Urine Amorphous Sediment Present /HPF Urine Bacteria Moderate /HPF (0-FEW) Urine Test Negative (NEG) Urine Opiates Screen Neg (NEG) Urine Methadone Screen Neg (NEG) Urine Barbiturates Neg (NEG) Urine Phencyclidine Screen Neg (NEG) Urine Amphetamine/Methamphetamine Pos (NEG) Urine Benzodiazepines Screen Pos (NEG) Urine Cocaine Screen Neg (NEG) Urine Cannabinoids Screen Neg (NEG) Urine Ethyl Alcohol Neg (NEG) Images Images RUQ US - no abnormality, normal appearing Gallbladder CT abdomen/pelvis - There is motion degradation. There is no abnormality of the limited visualized lung bases, no pleural fluid. Both kidneys enhance, no hydronephrosis. Gallbladder is present without obvious intraluminal abnormality by CT. No focal abnormality is identified of the liver, spleen, pancreas. There is no defined fluid collection associated with the pancreas. There is no adrenal nodularity. Accurate evaluation of bowel is limited without oral contrast and also due to motion. Normal appendix is visualized. There is no free air or free fluid. There is probable small bowel wall thickening in the left upper quadrant of the abdomen. There is mild lumbar dextroscoliosis. There is [id number] degenerative disc disease at L3-4, minimally L4-5. IMPRESSION: 1. There is no significant abnormality of the pancreas although imaging findings can be delayed relative to laboratory changes of pancreatitis. 2. Evaluation of bowel is limited without oral contrast, likely small bowel wall thickening in the left upper quadrant as may be seen with enteritis. VTE Prophylaxis Ordered VTE Prophylaxis Devices: No VTE Pharmacological Prophylaxi: No Assessment/Plan Assessment/Plan A/P: RUQ pain - mild pancreatitis - already with 2 days of NPO and symptoms improving it would be appropriate for some aggressive IVF resuscitation. Apparently this was difficult as patient was erratic and had verbally abusive visitors. 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 I have given her information for local women's shelters and asked PAT team evaluation. Likely she may improve over the course of the next couple hours to be able to discharge. However, I will admit if she does not improve. MAC WALLACE MD Jul 15, 2018 13:31
[2018-07-15] MEDS ORDERED: IV NORMAL SALINE 1000ML BAG 1,000 ML IV ONE (13:45)
[2018-07-15 14:25] VITALS: BP 119/72
== END 2018-07-15 14:40 | disposition left against medical advice (07) ==
LOC: ER 09:04 → UNDOADMIN 13:14 → 5 NORTH 13:14 → ER 14:40
DX: K85.90 Acute pancreatitis without necrosis or infection, unspecified (principal); R10.11 Right upper quadrant pain; F15.20 Other stimulant dependence, uncomplicated; R30.0 Dysuria; F31.9 Bipolar disorder, unspecified; G89.29 Other chronic pain; F17.200 Nicotine dependence, unspecified, uncomplicated; Z98.51 Tubal ligation status; Z88.2 Allergy status to sulfonamides
CPT/HCPCS: 36415; 74177; 76705; 80053; 80307; 81001; 81025; 83690; 85025; 87086; 96374; 96375; 99284; G0480; J1885; J2405; Q9967

== ENCOUNTER → 2018-08-20 | Outpatient (CLI) | payer OTHER ==
--- NOTE | 2018-08-20 10:48 | RAD ---
MRI of the brain without contrast 08/20/2018 Clinical History: Intractable chronic migraine headaches. Technique: Unenhanced T1-weighted sagittal and axial, T2-weighted axial and coronal and FLAIR, gradient echo and diffusion-weighted axial images of the brain were obtained. Findings: The ventricles and sulci are within normal limits in size and configuration. No area of significant abnormal signal intensity is seen involving brain parenchyma. No extra-axial fluid collection is seen. There is no MRI evidence of acute ischemia/infarction. The paranasal sinuses are essentially clear. Normal flow voids are seen within the major vascular structures surrounding the brain parenchyma. Impression: Negative study. Electronically signed by: Hesham Merlos MD (08/20/2018 10:45 AM) [id number]
== END | disposition home or self-care (01) ==
LOC: MRI 09:20
PROVIDERS: ATTEND Psychiatry & Neurology Neurology with Special Qualifications in Child Neurology
DX: G43.711 Chronic migraine without aura, intractable, with status migrainosus (principal)
CPT/HCPCS: 70551

== ENCOUNTER → 2018-12-23 | Day surgery (SDC) | payer MEDICAID ==
[~2018-12-23] MED LIST changes: +HYDROmorphone 2 MG/ML VIAL IV PRN; +IV RINGERS,LACTATED 1000ML 1,000 ML IV SCH; +LIDOCAINE 2% PF 5 ML VIAL. ONE; +MORPHINE SULFATE 2 MG/ML VIAL. IV PRN; +ONDANSETRON PF 4 MG/2 ML VIAL. IV PRN; +PROCHLORPERAZINE 10 MG/2 ML VIAL. IV PRN; +PROPOFOL 20 ML IV ONE; +PROPOFOL 40 ML IV ONE; +fentaNYL PF VIAL 100 MCG/2 ML VIAL IV PRN
[2018-12-23 12:18] VITALS: BP 109/53
--- NOTE | 2018-12-23 13:05 | PREOP HP ---
DATE OF SERVICE: 12/23/2018 REQUESTING PHYSICIAN: ____ PRIMARY CARE PHYSICIAN: ____. REASON FOR PROCEDURE: Colon cancer screening and bloating. 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 She also complains of bloating. ALLERGIES: SULFA. PAST MEDICAL HISTORY: 1. Anxiety. 2. Depression. 3. Hypothyroidism. 4. Dysmenorrhea. 5. IBS. FAMILY MEDICAL HISTORY: Significant for breast cancer and esophageal cancer. SOCIAL HISTORY: She is a current smoker. She has used IV drugs in the past. She currently drinks 7 or less alcoholic beverages per week. MEDICATIONS: MAR was reviewed. REVIEW OF SYSTEMS: A 13-point review of systems was done and is positive as per HPI and otherwise negative. PHYSICAL EXAMINATION: VITAL SIGNS: She is afebrile. Vital signs are stable. GENERAL: She is a well-developed, well-nourished female, in no apparent distress. HEENT: Oropharynx is clear. CARDIOVASCULAR: S1, S2. LUNGS: Clear. ABDOMEN: Normoactive bowel sounds, soft, nontender, nondistended. EXTREMITIES: No edema. NEUROLOGIC: Awake, alert and oriented x 3. ASSESSMENT AND PLAN: 1. Bloating. 2. Positive genetic mutation. 3. Colorectal cancer screening. The risks and benefits of the upper and lower endoscopy were explained and she has agreed to proceed. MARK CASTANEDA MD DR: GAIL/rodney JOB#: [id number] / [id number]
--- NOTE | 2018-12-24 15:07 | PATHOLOGY ---
[facility] Accession Number: [id number] . 01 Material submitted: . PART A: small bowel - SMALL BOWEL BX PART B: stomach - STOMACH,ANTRUM BODY BX PART C: esophagus - DISTAL ESOPHAGUS BX. Modifiers: distal PART D: esophagus - MID ESOPHAGUS BX. Modifiers: mid PART E: colon - ASCENDING COLON POLYP. Modifiers: ascending PART F: colon - DESCENDING COLON POLYP. Modifiers: descending . 01 Clinical history: . Pre-OP DX: Dysphagia, GERD, Misael mutation, bloating, ERS Post-OP DX: Reflux, genetic mutation . 02 Diagnosis: A. Small bowel, biopsy: - Duodenal mucosa with intact villous architecture and no increase in intraepithelial lymphocytes. . B. Stomach, antrum and body, biopsy: - Mild chronic inactive gastritis. - An H. pylori immunostain is negative (B1; appropriate control). . C. Esophagus, distal, biopsy: - Squamocolumnar junctional mucosa; chronically inflamed. - Negative for intestinal metaplasia. . D. Esophagus, mid, biopsy: - Unremarkable squamous mucosa. . E. Ascending colon polyp, biopsy: - Hyperplastic polyp. . F. Descending colon polyp, biopsy: - Tubular adenoma, fragments. - Negative for high grade dysplasia. . (MAP:[facility]; 12/24/2018) [facility] 12/24/2018 0938 [facility] . 02 Electronically signed: . Milan Townsend MD, Pathologist NPI- [id number] . 01 Gross description: . A. Received in formalin labeled "Christal Garcia, small bowel BX," are 4 segments of driscoll soft tissue measuring 1.3 x 0.6 x 0.2 cm in aggregate dimensions and ranging from 0.4 to 0.6 cm in maximum dimension. The specimen is submitted entirely in cassette A1. . B. Received in formalin labeled "Jose, Christal, gastric, antrum body BX," are 4 segments of driscoll soft tissue measuring 1.1 x 0.9 x 0.3 cm in aggregate dimensions and ranging from 0.3 to 0.5 cm in maximum dimension. The specimen is submitted entirely in cassette B1. . C. Received in formalin labeled "Jose, Christal, distal esophagus BX," are 5 segments of driscoll soft tissue measuring 1.5 x 0.7 x 0.2 cm in aggregate dimensions and ranging from 0.3 to 0.4 cm in maximum dimension. The specimen is submitted entirely in cassette C1. . D. Received in formalin labeled "Jose, Christal, mid esophagus BX," are 2 segments of driscoll soft tissue measuring 0.7 x 0.3 x 0.2 cm in aggregate dimensions and ranging from 0.3 to 0.4 cm in maximum dimension. The specimen is submitted entirely in cassette D1. . E. Received in formalin labeled "Jose, Christal, ascending colon polyp," is a single segment of driscoll soft tissue measuring 0.3 cm in maximum dimension. The specimen is entirely submitted in cassette E1. . F. Received in formalin labeled "Jose, Christal, descending colon polyp," are 3 segments of driscoll soft tissue measuring 1.1 x 0.6 x 0.2 cm in aggregate dimensions and ranging from 0.3 to 0.4 cm in maximum dimension. The specimen is submitted entirely in cassette F1. (TSD; 12/23/2018) TOB/TOB 12/23/2018 1858 Local . 02 Pathologist provided ICD-10: K29.50, K20.9, K63.5, D12.4 . 02 CPT . 214968, 684507, 174993, [id number], [id number], [id number], [id number] Specimen Comment: A courtesy copy of this report has been sent to Specimen Comment: [phone], , . Specimen Comment: Report sent to ,DR WATT / DR DELATORRE Performed at: [address], [place], [place] [id number] MD Thad Paula MD Phone: [phone] Performed at: [address] [id number] MD Mahnaz Freed MD Phone: [phone]
== END ==
LOC: ENDOS 10:34
PROVIDERS: ATTEND Internal Medicine Gastroenterology
DX: Z12.11 Encounter for screening for malignant neoplasm of colon (principal); K29.50 Unspecified chronic gastritis without bleeding; K63.5 Polyp of colon; D12.4 Benign neoplasm of descending colon; K21.0 Gastro-esophageal reflux disease with esophagitis; K64.0 First degree hemorrhoids; F41.9 Anxiety disorder, unspecified; F32.9 Major depressive disorder, single episode, unspecified; E03.9 Hypothyroidism, unspecified; F17.210 Nicotine dependence, cigarettes, uncomplicated; Z72.89 Other problems related to lifestyle
CPT/HCPCS: 43239; 43450; 45380; 81025; 88305; 88342; J2001; J2405; J2704; 43233

== ENCOUNTER 2019-03-16 16:11 | Emergency (ER) | payer MEDICAID ==
[~2019-03-16] VITALS: Ht 162.6 cm; Wt 66.7 kg
[~2019-03-16 16:11] MED LIST changes: -HYDROmorphone 2 MG/ML VIAL IV PRN; -IV RINGERS,LACTATED 1000ML 1,000 ML IV SCH; -LIDOCAINE 2% PF 5 ML VIAL. ONE; -MORPHINE SULFATE 2 MG/ML VIAL. IV PRN; -ONDANSETRON PF 4 MG/2 ML VIAL. IV PRN; -PROCHLORPERAZINE 10 MG/2 ML VIAL. IV PRN; -PROPOFOL 20 ML IV ONE; -PROPOFOL 40 ML IV ONE; -fentaNYL PF VIAL 100 MCG/2 ML VIAL IV PRN
[2019-03-16] MEDS ORDERED: ONDANSETRON PF 4 MG/2 ML VIAL. IV ONE (16:45)
[2019-03-16] MEDS ORDERED: IV NORMAL SALINE 1000ML BAG 1,000 ML IV ONE (16:45)
[2019-03-16] MEDS ORDERED: methylPREDNISolone SOD SUCC PF 125 MG/2 ML VIAL. IV ONE (16:45)
[2019-03-16] MEDS ORDERED: IPRATRPIUM/ALBUTEROL 0.5/2.5MG 3 ML NEBU. NEB STA (16:46)
[2019-03-16 16:56] LABS: BASO % 0 % (0-3); EOS % 0 % (0-3); HEMATOCRIT 40.4 % (36.0-47.0); HEMOGLOBIN 13.6 g/dL (12.0-15.5); LYMPH # 1.7 x10^3/uL (1.0-4.8); LYMPH % 23 % (24-48); MEAN CORPUSCULAR HEMOGLOBIN 31 pg (25-35); MEAN CORPUSCULAR HGB CONC 34 g/dL (31-37); MEAN CORPUSCULAR VOLUME 93 fL (79-100); MONO # 0.7 x10^3/uL (0.0-1.1); MONO % 10 % (0-9); NEUT % 67 % (31-73); PLATELET COUNT 227 x10^3/uL (140-400); RED BLOOD COUNT 4.35 x10^6/uL (3.50-5.40); RED CELL DISTRIBUTION WIDTH 13.3 % (11.5-14.5); WHITE BLOOD COUNT 7.5 x10^3/uL (4.0-11.0)
[2019-03-16 16:58] LABS: BILIRUBIN,URINE NEGATIVE (NEG); CLARITY,URINE CLEAR; COLOR,URINE YELLOW; NITRITE,URINE NEGATIVE (NEG); PH,URINE 6.5; PROTEIN,URINE NEGATIVE (NEG-TRACE); UROBILINOGEN,URINE 0.2 mg/dL (0.2 mg/dL)
[2019-03-16 17:07] LABS: BACTERIA,URINE FEW /HPF (0-FEW); SQUAMOUS EPITHELIAL CELL,UR FEW /LPF
[2019-03-16 17:13] LABS: INFLUENZA A PATIENT NEGATIVE (NEGATIVE); INFLUENZA B PATIENT NEGATIVE (NEGATIVE)
[2019-03-16 17:13] LABS: BARBITURATES NEG (NEG); BENZODIAZEPINES NEG (NEG); CANNABINOIDS NEG (NEG); COCAINE NEG (NEG); METHADONE NEG (NEG); OPIATES NEG (NEG); PHENCYCLIDINE NEG (NEG)
--- NOTE | 2019-03-16 17:14 | RAD ---
EXAM: Chest, 2 views HISTORY: Cough and fever. COMPARISON: None. FINDINGS: 2 views of the chest are obtained. There is no infiltrate, effusion or pneumothorax. The heart is normal in size. IMPRESSION: No acute pulmonary finding. Electronically signed by: Nia Trevizo MD (03/16/2019 5:11 PM) [place] [id number]
[2019-03-16 17:18] LABS: AMPHETAMINE/METHAMPHETAMINE NEG (NEG)
--- NOTE | 2019-03-16 17:19 | PHYS DOC ---
Past Medical History Past Medical History: Anxiety, Bipolar, Bronchitis, GERD, Hypothyroid, UTI, Other Additional Past Medical Histor: borderline split personality disorder,bipolar II,CHRONIC PAIN,HERPES Past Surgical History: Tubal ligation, Other Additional Past Surgical Histo: tubes ligation reversed Alcohol Use: Occasionally Drug Use: Methamphetamine Adult General Chief Complaint Chief Complaint: NAUSEA/VOMITING/DIARRHA HPI HPI Patient is a 48 year old female who presents with cough, shortness of breath, fever, nausea, vomiting, diarrhea that's been ongoing since . She states the cough started 2 days ago. She states it started having left arm pain and gareth st pain that started day and a half ago. She rates her pain as 9 out of 10 in severity and sharp. She states that the cough bothers her the most. She states that she's been taking Robitussin, NyQuil flu, and other similar [id number] products to try to help and nothing is been helping so far. S tates that she has been able to keep fluids down at home. Review of Systems Review of Systems Constitutional: Reports fever or chills [] Eyes: Denies change in visual acuity, redness, or eye pain [] HENT: Reports nasal congestion and runny nose. Respiratory: Reports cough Cardiovascular: No additional information not addressed in HPI [] GI: Denies abdominal pain, nausea, vomiting, bloody stools or diarrhea [] : Denies dysuria or hematuria [] Musculoskeletal: Denies back pain or joint pain [] Integument: Denies rash or skin lesions [] Neurologic: Reports headache,denies focal weakness or sensory changes [] Endocrine: Denies polyuria or polydipsia [] Complete systems were reviewed and found to be within normal limits, except as documented in this note. Current Medications Current Medications Current Medications Medications (Trade) Dose Ordered Sig/Mauricio Start Time Stop Time Status Last Admin Dose Admin Acetaminophen/ Aspirin/Caffeine (Excedrin Migraine) 1 tab 1X STAT 03/16/19 17:33 03/16/19 17:34 DC Albuterol/ Ipratropium (Duoneb) 3 ml 1X STAT 03/16/19 16:46 03/16/19 16:49 DC 03/16/19 16:54 3 ML Methylprednisolone Sodium Succinate (SOLU-Medrol 125MG VIAL) 125 mg 1X ONCE 03/16/19 16:45 03/16/19 16:47 DC 03/16/19 17:11 125 MG Ondansetron HCl (Zofran) 4 mg 1X ONCE 03/16/19 16:45 03/16/19 16:47 DC 03/16/19 17:12 4 MG Sodium Chloride 1,000 ml @ 1,000 mls/hr 1X ONCE 03/16/19 16:45 03/16/19 17:44 03/16/19 17:09 1,000 MLS/HR Allergies Allergies Allergies Coded Allergies Type Severity Reaction Last Updated Verified Sulfa (Sulfonamide Antibiotics) Allergy Intermediate 12/23/18 Yes Physical Exam Physical Exam Constitutional: Well developed, well nourished, no acute distress, non-toxic appearance. [] HENT: Normocephalic, atraumatic, bilateral external ears normal, oropharynx moist, no oral exudates, nose normal. [] Eyes: PERRLA, EOMI, conjunctiva normal, no discharge. [] Neck: Normal range of motion, no tenderness, supple, no stridor. [] Cardiovascular:Heart rate regular rhythm, no murmur [] Lungs & Thorax: Bilateral breath sounds clear to auscultation [] Abdomen: Bowel sounds normal, soft, no tenderness, no masses, no pulsatile masses. [] Skin: Warm, dry, no erythema, no rash. [] Back: No tenderness, no CVA tenderness. [] Extremities: No tenderness, no cyanosis, no clubbing, ROM intact, no edema. [] Neurologic: Alert and oriented X 3, normal motor function, normal sensory function, no focal deficits noted. [] Psychologic: Affect normal, judgement normal, mood normal. [] Current Patient Data Vital Signs Vital Signs Date Time Temp Pulse Resp B/P (MAP) Pulse Ox O2 Delivery O2 Flow Rate FiO2 03/16/19 16:55 97 Room Air 03/16/19 16:35 98.6 92 17 137/72 (93) 98.6 Lab Values Laboratory Tests Test 03/16/19 16:15 03/16/19 16:30 Urine Collection Type Unknown Urine Color Yellow Urine Clarity Clear Urine pH 6.5 Urine Specific [place] 1.015 Urine Protein Negative mg/dL (NEG-TRACE) Urine Glucose (UA) Negative mg/dL (NEG) Urine Ketones (Stick) Negative mg/dL (NEG) Urine Blood Negative (NEG) Urine Nitrite Negative (NEG) Urine Bilirubin Negative (NEG) Urine Urobilinogen Dipstick 0.2 mg/dL (0.2 mg/dL) Urine Leukocyte Esterase Trace (NEG) Urine RBC 3-5 /HPF (0-2) Urine WBC 5-10 /HPF (0-4) Urine Squamous Epithelial Cells Few /LPF Urine Bacteria Few /HPF (0-FEW) Urine Opiates Screen Neg (NEG) Urine Methadone Screen Neg (NEG) Urine Barbiturates Neg (NEG) Urine Phencyclidine Screen Neg (NEG) Urine Amphetamine/Methamphetamine Neg (NEG) Urine Benzodiazepines Screen Neg (NEG) Urine Cocaine Screen Neg (NEG) Urine Cannabinoids Screen Neg (NEG) Urine Ethyl Alcohol Neg (NEG) White Blood Count 7.5 x10^3/uL (4.0-11.0) Red Blood Count 4.35 x10^6/uL (3.50-5.40) Hemoglobin 13.6 g/dL (12.0-15.5) Hematocrit 40.4 % (36.0-47.0) Mean Corpuscular Volume 93 fL (79-100) Mean Corpuscular Hemoglobin 31 pg (25-35) Mean Corpuscular Hemoglobin Concent 34 g/dL (31-37) Red Cell Distribution Width 13.3 % (11.5-14.5) Platelet Count 227 x10^3/uL (140-400) Neutrophils (%) (Auto) 67 % (31-73) Lymphocytes (%) (Auto) 23 % (24-48) L Monocytes (%) (Auto) 10 % (0-9) H Eosinophils (%) (Auto) 0 % (0-3) Basophils (%) (Auto) 0 % (0-3) Neutrophils # (Auto) 5.0 x10^3/uL (1.8-7.7) Lymphocytes # (Auto) 1.7 x10^3/uL (1.0-4.8) Monocytes # (Auto) 0.7 x10^3/uL (0.0-1.1) Eosinophils # (Auto) 0.0 x10^3/uL (0.0-0.7) Basophils # (Auto) 0.0 x10^3/uL (0.0-0.2) Sodium Level 141 mmol/L (136-145) Potassium Level 3.9 mmol/L (3.5-5.1) Chloride Level 104 mmol/L (98-107) Carbon Dioxide Level 26 mmol/L (21-32) Anion Gap 11 (6-14) Blood Urea Nitrogen 20 mg/dL (7-20) Creatinine 0.8 mg/dL (0.6-1.0) Estimated GFR (Cockcroft-Gault) 76.6 BUN/Creatinine Ratio 25 (6-20) H Glucose Level 98 mg/dL (70-99) Calcium Level 8.6 mg/dL (8.5-10.1) Magnesium Level 2.0 mg/dL (1.8-2.4) Total Bilirubin 0.3 mg/dL (0.2-1.0) Aspartate Amino Transferase (AST) 23 U/L (15-37) Alanine Aminotransferase (ALT) 19 U/L (14-59) Alkaline Phosphatase 74 U/L (46-116) Troponin I Quantitative < 0.017 ng/mL (0.000-0.055) Total Protein 7.4 g/dL (6.4-8.2) Albumin 3.6 g/dL (3.4-5.0) Albumin/Globulin Ratio 0.9 (1.0-1.7) L Ethyl Alcohol Level < 10 mg/dL (0-10) Influenza Type A Antigen Negative (NEGATIVE) Influenza Type B Antigen Negative (NEGATIVE) Laboratory Tests 03/16/19 16:30 Laboratory Tests 03/16/19 16:30 EKG EKG [] Radiology/Procedures Radiology/Procedures [] Course & Med Decision Making Course & Med Decision Making Pertinent Labs and Imaging studies reviewed. (See chart for details) Will get chest x-ray, labs, and give supportive care. Labs are unremarkable. Chest x-ray is unremarkable. It appears patient is having a viral illness. Will send her home with prednisone and zofran. Dragon Disclaimer Dragon Disclaimer This electronic medical record was generated, in whole or in part, using a voice recognition dictation system. Departure Departure Impression: Primary Impression: Bronchitis Additional Impression: Upper respiratory infection, viral Disposition: HOME, SELF-CARE Condition: STABLE Referrals: NO PCP (PCP) Patient Instructions: Acute Bronchitis, Nausea and Vomiting Additional Instructions: Thank you for visiting [facility]. We appreciate you trusting us with your care. If any additional problems come up don't hesitate to return to visit us. Please follow up with your primary care provider so they can plan additional care if needed and know about the problem that you had. If symptoms worsen come back to the Emergency Department. Any concerning symptoms that start such as chest pain, shortness of air, weakness or numbness on one side of the body, running high fevers or any other concerning symptoms return to the ER. Please fill your medications at any pharmacy and follow the prescription instructions. Scripts Benzonatate (TESSALON PERLE) 100 Mg Capsule 100 MG PO TID PRN for COUGH, #21 CAP Prov: YANI ACKERMAN APRN 03/16/19 Ondansetron (ONDANSETRON ODT) 4 Mg Tab.rapdis 1 TAB PO PRN Q6-8HRS PRN for NAUSEA, #16 TAB Prov: YANI ACKERMAN APRN 03/16/19 Methylprednisolone (MEDROL) 4 Mg Tab.ds.pk 1 PKG PO UD, #1 PKG Prov: YANI ACKERMAN APRN 03/16/19 Problem Qualifiers YANI ACKERMAN APRN Mar 16, 2019 17:19
[2019-03-16 17:23] LABS: CALCIUM 8.6 mg/dL (8.5-10.1); CREATININE 0.8 mg/dL (0.6-1.0); GFR 76.6; POTASSIUM 3.9 mmol/L (3.5-5.1)
[2019-03-16 17:29] LABS: ALBUMIN 3.6 g/dL (3.4-5.0); ALBUMIN/GLOBULIN RATIO 0.9 (1.0-1.7); TOTAL BILIRUBIN 0.3 mg/dL (0.2-1.0); TOTAL PROTEIN 7.4 g/dL (6.4-8.2)
[2019-03-16 17:31] VITALS: BP 106/53
[2019-03-16] MEDS ORDERED: ASA/APAP/CAFFEINE 250/250/65MG TABLET. PO STA (17:33)
[2019-03-16] MEDS ORDERED: ONDA4TAB12 PO (17:39)
[2019-03-16] MEDS ORDERED: METH4TAB2 PO (17:39)
[2019-03-16] MEDS ORDERED: BENZ100C PO (17:40)
== END 2019-03-16 17:47 | disposition home or self-care (01) ==
LOC: ER 16:11
DX: J40 Bronchitis, not specified as acute or chronic (principal); J06.9 Acute upper respiratory infection, unspecified; K21.9 Gastro-esophageal reflux disease without esophagitis; E03.9 Hypothyroidism, unspecified; F31.9 Bipolar disorder, unspecified; G89.29 Other chronic pain; Z88.2 Allergy status to sulfonamides
CPT/HCPCS: 36415; 71046; 80053; 80307; 81001; 83735; 84484; 85025; 87086; 87804; 94640; 96361; 96374; 96375; 99285; G0480; J2405; J2930; J7030; J7620